=== PATIENT | female | born 1945 | race Caucasian/White ===

== ENCOUNTER 2018-01-27 06:29 | Day surgery (SDC) | payer MEDICARE, OTHER, SELFPAY ==
[2018-01-27] VITALS (7 sets, daily range): BP systolic 132–159; BP diastolic 70–93; PULSE 78–96; RESP 14–18; TEMP 36.3–37.1; O2SAT 94–97; BMI 22.9
--- NOTE | 2018-01-27 | DI.RAD.S_ITS ---
PROCEDURE: XR ABDOMEN 1V INDICATIONS: Determined gas pattern of the colon post colonoscopy attempt TECHNIQUE: One view of the abdomen acquired. COMPARISON: [facility], , ABDOMEN ACUTE SERIES, 08/10/2017, 5:36. FINDINGS: Surgical changes and devices: None. Bowel: No gaseous prominence of the cecum measuring approximately 5.7 cm. Otherwise, no bowel obstruction or dilated bowel loops. No free air seen. Soft tissues: No suspicious abdominal calcifications. Visualized solid organ contours appear normal in size. Bones: Extensive discogenic changes and mild levocurvature of the lumbar spine. Mild bilateral hip joint degeneration. IMPRESSION: No definite bowel obstruction or free air seen. Mild gaseous prominence of the cecum. If the patient's symptoms do not improve, continued surveillance with followup abdominal series radiographs could be performed. Dictated by: Terrell Israel M.D. on 01/27/2018 at 10:37 Approved by: Terrell Israel M.D. on 01/27/2018 at 10:39
[2018-01-27] MEDS: SODIUM CHLORIDE 0.9% 1,000 ML 200 ML IV (07:52)
--- NOTE | 2018-01-27 08:14 | PM.PREOP ---
Pre-operative Note Interval Note Pre-op Check: History & Physical Reviewed by Physician and Exam Performed H&P completed within 30 days and has changed as indicated here:: increased reflux sx despite acid suppression. Had minor rectal bleeding after enema. No other change. ASA Class (for procedural sedation): II
[2018-01-27] MEDS: PROMETHAZINE 25 MG/ML VIAL 12.5 MG IV (08:25)
[2018-01-27] MEDS: MIDAZOLAM 5 MG/5 ML VIAL IV (08:45)
[2018-01-27] MEDS: fentaNYL 250 MCG/5 ML INJ IV (08:45)
--- NOTE | 2018-01-27 09:14 | PM.OP.ENDO ---
Operative Date/Time/Diagnoses - Date of procedure: 01/27/18 Time of procedure: 09:14 Pre-op diagnosis: History of perforated diverticulitis. Rule out stricture at the anastomosis prior to colostomy closure Post-op diagnosis: other (Stricture at the anastomosis. Could not get beyond.) Procedure & Clinicians Study performed: Flexible sigmoidoscopy Same procedure as scheduled: No (Colonoscopy planned) Indications: Rule out anastomotic stricture Surgeon: Jett Garay Procedure Notes SCOAP/Timeout: Performed Procedure in detail: The patient was placed in left lateral decubitus position underwent IV sedation directed by the surgeon consisting of fentanyl and Versed. This was titrated to effect. Digital exam was unremarkable. The scope was inserted and advanced through the rectum into the sigmoid. Which the anastomosis with some difficulty. In fact I had to switch out to an EGD scope for the thinner caliber and flexibility. The rectum was normal in caliber as it was everything up to the anastomosis. The anastomosis however could not identify a lumen. Despite multiple attempts at repositioning the patient I could not get beyond this area. The scope was removed and the patient tolerated the procedure well. Scope withdrawal time: Not applicable Sedation minutes: 23 Specimen(s): none sent Complications: none Plan for aftercare: Will see me office to plan operation Follow up: weeks Disposition: PACU
--- NOTE | 2018-01-27 10:30 | SUR.PHASEII ---
Abdominal x-ray at bedside. Pt with stool incontinece, liquid brown/red. Dr. Garay notified. Pt cleaned up, depends placed on pt. Pt denies pain or nausea. Pt is tolerating ice chips. Pt continues to be drowsy, spouse at bedside, side rails up and call light provided.
== END 2018-01-27 11:14 | disposition home or self-care (01) ==
PROVIDERS: PCP Physician Assistant; Visit Provider Specialist
PROC: 0DJD8ZZ Inspection of Lower Intestinal Tract, Via Natural or Artificial Opening Endoscopic (ICD-10-PCS; CPT 45378; principal; 2018-01-27 07:45)
DX: Z87.19 Personal history of other diseases of the digestive system (principal); K56.699 Other intestinal obstruction unspecified as to partial versus complete obstruction; Z93.3 Colostomy status
CPT/HCPCS: 45330; 74018; 99152; 99153; J2250; J2550; J3010

== ENCOUNTER 2018-02-16 09:29 | Inpatient (IN) | payer MEDICARE, OTHER, SELFPAY ==
[2018-02-08 10:40] VITALS: BMI 24.6
[2018-02-16] VITALS (20 sets, daily range): BP systolic 113–155; BP diastolic 51–75; PULSE 75–95; RESP 12–21; TEMP 35.9–36.8; O2SAT 94–98; BMI 24.6
--- NOTE | 2018-02-16 | PATH_ITS ---
[facility] Accession Number: [id number] . 01 Material submitted: . PART A: ILEOSTOMY PART B: SIGMOID ANASTOMOSIS AND RINGS . 02 Diagnosis: A. Ileostomy, Resection: Segment of ileum with stoma. Negative for dysplasia or malignancy. . B. Sigmoid Colon and Anstomotic Rings, Resection: Segment of grossly stenotic colon and anastomotic rings. Negative for dysplasia or malignancy. [facility]/02/22/2018 . 02 Electronically signed: . Nabil Quispe MD, PhD, Pathologist NPI- [id number] . 01 Gross description: . (A) Received in formalin, labeled 1-ileostomy, is an unoriented segment of small bowel (length-6.2 cm, resection margin #1 diameter-1.3 cm; resection margin #2 diameter-2.3 cm) connecting to a stoma (diameter-3.3 cm) encircled by a rim of pimentel-white smooth shiny skin (0.4 cm thick). The bowel resection margins are received stapled and the stoma is sutured. The mucosa is pimentel with normal folds. No nodules, masses or lesions are identified. The resection margins are inked black. Section code: (A1) resection margin #1, longitudinal sectioned, telephone sales representative; (A2) resection margin #2, longitudinally sectioned, telephone sales representative; (A3) additional longitudinal section. (B) Received in formalin, labeled 2-sigmoid anastomosis plus rings, is an unoriented segment of colon (length-3.2 cm, resection margin #1 and #2 diameters-1.5 cm) with attached adipose tissue (up to 3.2 cm in depth). Also submitted are two unoriented pieces of colon (piece #1-3.1 x 1.5 x 0.3 cm; piece #2-1.5 x 1.2 x 1.0 cm). The mucosa is pimentel and unremarkable. No nodules, masses or lesions are identified. The resection margins inked black. Section code: (B1) resection margin #1, longitudinally sectioned, telephone sales representative; (B2) resection margin #2, longitudinally sectioned, telephone sales representative; (B3) colon segment, serially sectioned, telephone sales representative; (B4) separate piece #1, bisected, entirely submitted; (B5) piece #2, bisected, entirely submitted. Note: Piece #1 broke into three pieces while bisecting. ([id number]) /MRV . 02 Pathologist provided ICD-10: Z43.2, K94.10 . 02 CPT . 194158, 223609 Performed at: 01 [facility] [address] [id number] MD Aj Rashid MD Phone: [phone] Performed at: 02 [facility] [address] [place] [id number] MD Tommie Cameron MD Phone: [phone]
[2018-02-16] MEDS: LACTATED RINGERS 1,000 ML 42 ML IV (10:26)
[2018-02-16] MEDS: ERYTHROMYCIN BASE 500 MG TABLET PR (10:30)
--- NOTE | 2018-02-16 10:42 | PM.PREOP ---
Pre-operative Note Interval Note Pre-op Check: History & Physical Reviewed by Physician and Exam Performed H&P completed within 30 days and has changed as indicated here:: No changes. Will be placed in the ICU postop due to epidural catheter being placed. No Lovenox preop because of that.
[2018-02-16] MEDS: FAMOTIDINE 20 MG/50 ML PIGGYBACK 200 MG IV (10:51)
[2018-02-16 11:06] LABS: Hematocrit 41.5 % (36-46); Hemoglobin 13.8 g/dL (12.0-16.0); Mean Corpuscular HGB Conc 33.3 % (30-36); Mean Corpuscular Hemoglobin 29.8 PG (26-34); Mean Corpuscular Volume 89.4 fL (80-100); Platelet Count 328 X10^3/uL (150-400); Red Blood Cell Count 4.64 X10^6/uL (4.0-5.2); Red Cell Distribution Width 13.5 % (11.6-14.8); White Blood Cell Count 7.9 X10^3/uL (4.5-11.0)
[2018-02-16] MEDS: metroNIDAZOLE 500 MG/100 ML PIGGYBACK 100 MG IV (11:10)
[2018-02-16] MEDS: levoFLOXacin 500 MG/100 ML PIGGYBACK 100 MG IV (11:27)
[2018-02-16 11:55] LABS: Neutrophils Absolute Manual 3950 /uL (3000-5900); RBC Morphology Normal Morphology; Total Cells Counted 100
--- NOTE | 2018-02-16 14:54 | PM.OP.1 ---
Operative Date/Time/Diagnoses - Date of procedure: 02/16/18 Time of procedure: 14:54 Pre-op diagnosis: Anastomotic stricture of the sigmoid colon. Ileostomy. Post-op diagnosis: same Procedure & Clinicians Procedure: Revision of anastomosis with colo colo anastomosis and closure of ileostomy with resection of small bowel. Same procedure as scheduled: Yes Indications: Patient desiring ileostomy closure. Have his a stricture at her prior anastomosis from operation done urgently. Surgeon: Jett Garay Annealer Helper: Shantal Alan Anesthesia Type: General Operative Notes Findings: Very tight stricture in and otherwise healthy segment of colon. Vzih-bb-wvmu anastomosis created at the ileostomy closure Closure Type: primary Specimen(s): other (Colonic donuts, strictured area of the colon, ileostomy segment) Implants & Drains: None Applied: catheter Estimated Blood Loss (mL): 100 Blood products transfused: none Procedure in detail: The patient is placed supine on the operating table and went general endotracheal anesthesia. Her ileostomy was closed by over-sewing it with an 0 Prolene suture. She was prepped and draped in the usual fashion. An IO band was placed over the entire abdomen to keep the ileostomy separate from the midline incision. Incision was made through the old scar in the midline and carried down the level of the peritoneum. The peritoneal cavity was entered under direct vision. There are very few adhesions to the anterior abdominal wall. The wound was opened and adhesions divided to mobilize down to the affected anastomotic stricture. The area of problem was readily identified. There prior anastomosis was densely adherent to the bladder. This was taken off sharply. I chose a place proximal and distal on the colon to divide this segment containing the stricture. Except for the area of the stricture itself the colon was very healthy and of normal caliber pink in appearance. We divided the mesentery and CHARLES was used to fire across the colon on each side of the stricture in the segment was removed. The proximal end was opened and sized. A 28 [place] anvil was placed proximally. The other into the EUA stapling device was inserted into the rectum and gradually brought up to the level near the anastomosis. I chose to actually bring this through the anterior wall of the sigmoid rather then forced my way up to the very and. This was done without difficulty and then an anastomosis was created firing the 2 ends together. The donuts were examined and were found to be complete. The anastomosis was palpably adequate. The air was placed under tension into the colon and the anastomosis placed under water. There was no air leak. Attention was then turned to the ileostomy. An incision was made circumferentially around the ileostomy and the small bowel was from the subcu fat and fascia of the area. It was reduced into the abdomen. Choosing a point proximal and distal where I could make a anastomosis I placed small openings in the small bowel on each side and using a CHARLES stapling device created a scca-bi-fdyl anastomosis on the anti mesenteric border of the small bowel to small bowel. A CHARLES was then fired across the 2 loops of bowel and the open area created 1 long staple line and closing the defect created by the initial firing of the CHARLES to create the vijv-mm-lbkz anastomosis. The anastomosis had been examined prior to closure of the and and was felt to be adequate and no evidence of bleeding or incomplete transection. The mesenteric defect was closed with qvsvmi-vc-gnvct 3 0 Polysorb. The area was irrigated along with the pelvis. Fluid was suctioned. The fascia at the ileostomy was identified and from surrounding structures. Interrupted and mmgsez-in-eaerz 1. Surgically in was used to close the fascia. The subcu was left open. The midline fascia was closed with a running 1. Maxon and intermittent 0 Polysorb sutures. The subcu was irrigated and 3 0 Polysorb was used to partially close this. The skin in the midline was closed with a running 4 0 Polysorb subcuticular stitch and Steri-Strips. The other wound had 3 0 nylons placed to close it in a few days in a delayed primary fashion. wet gauze was inserted into the ileostomy site. Dressing was applied. Patient was sent to recovery and will ultimately go to the ICU because of an epidural catheter for pain control. Complications: none Condition: stable Disposition: PACU Plan for aftercare: ICU floor care for epidural
--- NOTE | 2018-02-16 15:07 | P.OP_ITS ---
Operative Date/Time/Diagnoses - Date of procedure: 02/16/18 Time of procedure: 14:54 Pre-op diagnosis: Anastomotic stricture of the sigmoid colon. Ileostomy. Post-op diagnosis: same Procedure & Clinicians Procedure: Revision of anastomosis with colo colo anastomosis and closure of ileostomy with resection of small bowel. Same procedure as scheduled: Yes Indications: Patient desiring ileostomy closure. Have his a stricture at her prior anastomosis from operation done urgently. Surgeon: Jett Garay Supervisor [facility] [facility]: Shantal Alan Anesthesia Type: General Operative Notes Findings: Very tight stricture in and otherwise healthy segment of colon. Side- to-side anastomosis created at the ileostomy closure Closure Type: primary Specimen(s): other (Colonic donuts, strictured area of the colon, ileostomy segment) Implants & Drains: None Applied: catheter Estimated Blood Loss (mL): 100 Blood products transfused: none Procedure in detail: The patient is placed supine on the operating table and went general endotracheal anesthesia. Her ileostomy was closed by over-sewing it with an 0 Prolene suture. She was prepped and draped in the usual fashion. An IO band was placed over the entire abdomen to keep the ileostomy separate from the midline incision. Incision was made through the old scar in the midline and carried down the level of the peritoneum. The peritoneal cavity was entered under direct vision. There are very few adhesions to the anterior abdominal wall. The wound was opened and adhesions divided to mobilize down to the affected anastomotic stricture. The area of problem was readily identified. There prior anastomosis was densely adherent to the bladder. This was taken off sharply. I chose a place proximal and distal on the colon to divide this segment containing the stricture. Except for the area of the stricture itself the colon was very healthy and of normal caliber pink in appearance. We divided the mesentery and CHARLES was used to fire across the colon on each side of the stricture in the segment was removed. The proximal end was opened and sized. A 28 [place]ralt[place] anvil was placed proximally. The other into the EUA stapling device was inserted into the rectum and gradually brought up to the level near the anastomosis. I chose to actually bring this through the anterior wall of the sigmoid rather then forced my way up to the very and. This was done without difficulty and then an anastomosis was created firing the 2 ends together. The donuts were examined and were found to be complete. The anastomosis was palpably adequate. The air was placed under tension into the colon and the anastomosis placed under water. There was no air leak. Attention was then turned to the ileostomy. An incision was made circumferentially around the ileostomy and the small bowel was from the subcu fat and fascia of the area. It was reduced into the abdomen. Choosing a point proximal and distal where I could make a anastomosis I placed small openings in the small bowel on each side and using a CHARLES stapling device created a zgmi-kp-sxfl anastomosis on the anti mesenteric border of the small bowel to small bowel. A CHARLES was then fired across the 2 loops of bowel and the open area created 1 long staple line and closing the defect created by the initial firing of the CHARLES to create the zbre-sh-xvgf anastomosis. The anastomosis had been examined prior to closure of the and and was felt to be adequate and no evidence of bleeding or incomplete transection. The mesenteric defect was closed with shhazy-cb-gqper 3 0 Polysorb. The area was irrigated along with the pelvis. Fluid was suctioned. The fascia at the ileostomy was identified and from surrounding structures. Interrupted and qvibrb-px-jihto 1. Surgically in was used to close the fascia. The subcu was left open. The midline fascia was closed with a running 1. Maxon and intermittent 0 Polysorb sutures. The subcu was irrigated and 3 0 Polysorb was used to partially close this. The skin in the midline was closed with a running 4 0 Polysorb subcuticular stitch and Steri- Strips. The other wound had 3 0 nylons placed to close it in a few days in a delayed primary fashion. wet gauze was inserted into the ileostomy site. Dressing was applied. Patient was sent to recovery and will ultimately go to the ICU because of an epidural catheter for pain control. Complications: none Condition: stable Disposition: PACU Plan for aftercare: ICU floor care for epidural
[2018-02-16] MEDS: FENT 2MCG/BUPIV 0.125% EPI 2 MCG/100 ML PLAST..BAG 6 MCG EPIDURAL (15:30)
[2018-02-16] MEDS: LACTATED RINGERS 1,000 ML 100 ML IV (16:11)
[2018-02-16] MEDS: ONDANSETRON 4 MG/2 ML INJ IV (16:11)
[2018-02-16] MEDS: LACTATED RINGERS 500 ML 1000 ML IV (17:06)
[2018-02-16] MEDS: PROMETHAZINE 12.5 MG in SODIUM CHLORIDE 0.9% 50 ML 202 ML IV (17:07)
--- NOTE | 2018-02-16 19:01 | PC.NURSE ---
1600- Pt arrived via bed from PACU. Vitals wnl. NSR 1st degree AVB on monitor. Pt denies pain at this time. Epidural infusing per MD order at 6ml. Maintinence fluid infusing per order. Pt c/o nausea medicated per MD order. Room air saturation 97%. Ordriguez to gravity. Stable at this time.
[2018-02-16] MEDS: GABAPENTIN 300 MG CAPSULE PO (21:15)
[2018-02-16] MEDS: ENOXAPARIN 40 MG/0.4 ML SYRINGE SUBCUT (21:56)
[2018-02-17] VITALS (22 sets, daily range): BP systolic 91–137; BP diastolic 46–72; PULSE 79–100; RESP 14–18; TEMP 36.4–37.9; O2SAT 92–100
[2018-02-17] MEDS: LACTATED RINGERS 1,000 ML 100 ML IV ×3 (02:39→22:04)
[2018-02-17] MEDS: FENT 2MCG/BUPIV 0.125% EPI 2 MCG/100 ML PLAST..BAG 6 MCG EPIDURAL (04:54)
[2018-02-17 05:18] LABS: Add Manual Diff / Slide Review NO; Basophils Percent Auto 0.1 % (0-2); Hematocrit 34.1 % (36-46); Hemoglobin 11.5 g/dL (12.0-16.0); Mean Corpuscular HGB Conc 33.6 % (30-36); Mean Corpuscular Volume 89.1 fL (80-100); Monocytes Percent Auto 10.2 % (3-14); Neutrophils Absolute Auto 12100 /uL (3000-5900); Neutrophils Percent Auto 80.7 % (50-75); Platelet Count 282 X10^3/uL (150-400); Red Blood Cell Count 3.83 X10^6/uL (4.0-5.2); Red Cell Distribution Width 13.6 % (11.6-14.8)
[2018-02-17 05:21] LABS: Alanine Aminotransferase 33 IU/L (9-52); Albumin 3.2 g/dL (3.5-5.0); Albumin Globulin Ratio 1.2 (1.0-2.8); Alkaline Phosphatase 40 U/L (38-126); Aspartate Aminotransferase 28 IU/L (14-36); Bilirubin Total 0.6 mg/dL (0.2-1.3); Blood Urea Nitrogen 14 mg/dL (7-17); Calcium 8.1 mg/dL (8.4-10.2); Carbon Dioxide 25 mmol/L (22-32); Chloride 105 mmol/L (98-107); Estimated Glomerular Filt Rate 54.2 mL/min (>60); Globulin 2.6 g/dL (1.7-4.1); Glucose 115 mg/dL (80-110); HEMOLYSIS < 15 (0-50); Potassium 3.9 mmol/L (3.4-5.1); Sodium 141 mmol/L (137-145); Total Protein 5.8 g/dL (6.3-8.2)
[2018-02-17] MEDS: FENT 2MCG/BUPIV 0.125% EPI 2 MCG/100 ML PLAST..BAG 8 MCG EPIDURAL ×2 (06:00→17:01)
[2018-02-17] MEDS: fentaNYL 100 MCG/2 ML INJ IV (06:00)
--- NOTE | 2018-02-17 06:25 | PC.NURSE ---
0300: pt reports feeling like my bladder is going to explode. Catheter assessed and repositioned with immediate increase in urine output flow. Pt states relief. 0500: pt reports discomfort to ABD. Still feels like bladder is full. Catheter assessed, verified position with flow of urine visualized in tubing as well as spear bag. Bladder scan for < 50 mL. Pt states the pain is more on the ABD RLQ 6/10. Dr. Pfeiffer notified of lack of pain control. Orders received to increase epidural to 8 mL/hour as well as IVP fentanyl. Pt asleep and in NAD upon reassessment. VSS, Sp02 98% RA. RR 14-16.
[2018-02-17] MEDS: PROMETHAZINE 12.5 MG in SODIUM CHLORIDE 0.9% 50 ML 202 ML IV (08:30)
--- NOTE | 2018-02-17 11:22 | PC.NURSE ---
Pt up to chair with 1PA, FWW, gait belt and yellow socks. Tolerated chair from [id number] and then requested back to bed. Reports gen weakness and required extensive assist x2 to get back to bed. Positioned for comfort and reinforced use of pillow to splint abd. Call light in easy reach. Pt able to rest comfortably in bed with eyes closed and even/unlabored respirations.
--- NOTE | 2018-02-17 15:30 | CM.SWNOTE ---
DCP pending. Patient is expecting to discharge home with no needs, but also is expecting a one week hospital stay.
[2018-02-17] MEDS: ACETAMINOPHEN 325 MG TABLET 650 MG PO (15:58)
--- NOTE | 2018-02-17 16:36 | P.PN_ITS ---
Subjective Date Patient Seen: 02/17/18 Time Patient Seen: 09:34 Interval history: Patient feeling pretty well. Pain is well controlled. Epidural remains in. She is getting DVT prophylaxis. She was out of bed and walking a little bit. She took a great deal of assistance to get her back in bed probably related to the epidural. She is taking very little p.o. which is probably fine. Exam Vital Signs (past 8 hours): Vital Signs - 8 hr 3 02/17/18 12:19 02/17/18 13:00 02/17/18 15:12 Temperature 99.6 F 98.1 F Pulse Rate 86 82 Respiratory Rate 18 17 Blood Pressure 112/51 L 116/61 Pulse Oximetry 95 98 96 Pulse Oximetry 96 Oxygen Delivery Method Room Air Oxygen Flow Rate 0 Narrative Exam Narrative: Operative no apparent distress. Lungs are clear with good effort. Heart regular rate and rhythm without murmur gallop. Abdomen is little distended but soft. Incisions are intact. No cellulitis. Her open wound is clean and healthy. Objective Labs Result Diagrams: 02/17/18 04:44 02/17/18 04:44 Labs: Laboratory Results - last 24 hr 02/17/18 02/17/18 04:44 04:44 WBC 15.0 H D RBC 3.83 L Hgb 11.5 L Hct 34.1 L MCV 89.1 MCH 30.0 MCHC 33.6 RDW 13.6 Plt Count 282 Neut % (Auto) 80.7 H Lymph % (Auto) 9.0 L [place] % (Auto) 10.2 Eos % (Auto) 0.0 L Baso % (Auto) 0.1 Neut # (Auto) 86965 H Sodium 141 Potassium 3.9 Chloride 105 Carbon Dioxide 25 BUN 14 Creatinine 1.00 Estimated GFR 54.2 L BUN/Creatinine Ratio 14.0 Glucose 115 H Calcium 8.1 L Total Bilirubin 0.6 AST 28 ALT 33 Alkaline Phosphatase 40 Total Protein 5.8 L Albumin 3.2 L Globulin 2.6 Albumin/Globulin Ratio 1.2 Assessment & Plan Post-op Postoperative Procedures Operation Date: 02/16/18 10:15 Actual Procedures Side Surgeon p Revision of Colon Anastomosis/Ileostomy Closure Jett Garay MD Patient is doing well postop day 1. Will continue the epidural as long as possible. Cautious p.o.. I am in no long to give her food given that she has 2 anastomoses to recover from. She seems to be tolerating things pretty well from an infectious point of view. She is breathing well. Will continue to monitor for problems. Postoperative day: 1 Postoperative status: doing well Time Spent With Patient less than 15 minutes Quality VTE Deep Vein Thrombosis/Pulmonary Embolism Present on Admission: No
--- NOTE | 2018-02-17 20:49 | PC.NURSE ---
1800-Pt is taking po fluids ok but no other nutrition. Pt encouraged to take more po. Pt having gas pains that are making her feel like she cannot eat. No flatus reported. Will Monitor
[2018-02-17] MEDS: ENOXAPARIN 40 MG/0.4 ML SYRINGE SUBCUT (21:26)
[2018-02-17] MEDS: GABAPENTIN 300 MG CAPSULE PO (21:26)
[2018-02-18] VITALS (16 sets, daily range): BP systolic 108–144; BP diastolic 51–81; PULSE 84–95; RESP 14–19; TEMP 36–38; O2SAT 91–98
[2018-02-18] MEDS: FENT 2MCG/BUPIV 0.125% EPI 2 MCG/100 ML PLAST..BAG 8 MCG EPIDURAL (05:11)
[2018-02-18] MEDS: ACETAMINOPHEN 325 MG TABLET 650 MG PO ×3 (05:15→20:46)
[2018-02-18 05:19] LABS: Add Manual Diff / Slide Review NO; Basophils Percent Auto 0.4 % (0-2); Eosinophils Percent Auto 0.6 % (2-4); Hematocrit 28.9 % (36-46); Hemoglobin 9.7 g/dL (12.0-16.0); Lymphocytes Percent Auto 13.7 % (25-40); Mean Corpuscular HGB Conc 33.6 % (30-36); Mean Corpuscular Hemoglobin 30.3 PG (26-34); Mean Corpuscular Volume 90.2 fL (80-100); Neutrophils Absolute Auto 8400 /uL (3000-5900); Neutrophils Percent Auto 74.3 % (50-75); Platelet Count 238 X10^3/uL (150-400); Red Blood Cell Count 3.21 X10^6/uL (4.0-5.2); Red Cell Distribution Width 13.5 % (11.6-14.8); White Blood Cell Count 11.3 X10^3/uL (4.5-11.0)
[2018-02-18 05:25] LABS: Blood Urea Nitrogen 13 mg/dL (7-17); Calcium 7.8 mg/dL (8.4-10.2); Carbon Dioxide 28 mmol/L (22-32); Chloride 106 mmol/L (98-107); Estimated Glomerular Filt Rate 54.2 mL/min (>60); Glucose 107 mg/dL (80-110); HEMOLYSIS < 15 (0-50); Potassium 3.1 mmol/L (3.4-5.1); Sodium 141 mmol/L (137-145)
[2018-02-18] MEDS: DEXTROSE 5%-0.45NS W/KCL 20MEQ 1,000 ML 100 MEQ IV ×2 (08:04→20:14)
[2018-02-18] MEDS: GABAPENTIN 300 MG CAPSULE PO ×2 (08:07→20:46)
[2018-02-18] MEDS: POTASSIUM CHLORIDE 20 MEQ in SODIUM CHLORIDE 0.9% 250 ML 130 ML IV (08:17)
--- NOTE | 2018-02-18 12:55 | PM.PN.1 ---
Subjective Date Patient Seen: 02/18/18 Time Patient Seen: 12:55 Interval history: Antoinette is postop day 2 after laparotomy with colo proctostomy an ostomy reversal. She reports that her epidural is working reasonably well for her pain. She says she still feels some discomfort but it does not keep her from resting. She also reports that she feels something moving through there today. She has eaten some clear liquids but she feels a bit full and isn't really hungry. Perhaps she has passed a tiny bit of flatus she is not sure. Has had a little burp here and there. Exam Vital Signs (past 8 hours): Vital Signs - 8 hr 02/18/18 05:15 02/18/18 06:05 02/18/18 07:50 Temperature 99.6 F 98.4 F Pulse Rate 86 90 Respiratory Rate 15 14 Blood Pressure 123/60 H 117/53 L Pulse Oximetry 93 96 02/18/18 10:35 02/18/18 12:11 Temperature 98.6 F Pulse Rate 84 Respiratory Rate 19 Blood Pressure 135/78 H Pulse Oximetry 91 95 Pulse Oximetry 95 Oxygen Delivery Method Room Air Oxygen Flow Rate 0 Narrative Exam Narrative: Very pleasant lady. She appears comfortable and in no distress Lungs: Clear bilaterally with somewhat decreased air movement at the bases. No wheezing Heart: Regular rate and rhythm Abdomen: Soft, distended, hypo active bowel sounds. Right lower quadrant dressing is a bit wet. No purulent drainage. Extremities: Hope no edema Objective Labs Result Diagrams: 02/18/18 05:06 02/18/18 05:06 Labs: Laboratory Results - last 24 hr 02/18/18 02/18/18 05:06 05:06 WBC 11.3 H RBC 3.21 L Hgb 9.7 L Hct 28.9 L MCV 90.2 MCH 30.3 MCHC 33.6 RDW 13.5 Plt Count 238 Neut % (Auto) 74.3 Lymph % (Auto) 13.7 L [place] % (Auto) 11.0 Eos % (Auto) 0.6 L Baso % (Auto) 0.4 Neut # (Auto) 8400 H Sodium 141 Potassium 3.1 L Chloride 106 Carbon Dioxide 28 BUN 13 Creatinine 1.00 Estimated GFR 54.2 L BUN/Creatinine Ratio 13.0 Glucose 107 Calcium 7.8 L Assessment & Plan Plan: Assessment/Plan Narrative: 1. Excellent progress after laparotomy for revision of coloproctostomy an ostomy reversal. 2. We have epidural in place at least 1 more day 3. Change right lower quadrant dressing to keep it a little steam drier tender 4. Low-grade temp this morning though her white count continues to trend down. Will just employ a watchful waiting 5. Abdominal distention on clear liquids. Antoinette is not hungry or thirsty and so I think we will revert back to just diffuse sparing ice chips for today. This will give her bowels a little time to wake up and maybe prevent us from needing to place an NG tube. 6. Will add a little low-dose Reglan and see if we can help move things along. Quality VTE Deep Vein Thrombosis/Pulmonary Embolism Present on Admission: No
--- NOTE | 2018-02-18 12:58 | P.PN_ITS ---
Subjective Date Patient Seen: 02/18/18 Time Patient Seen: 12:55 Interval history: Antoinette is postop day 2 after laparotomy with colo proctostomy an ostomy reversal. She reports that her epidural is working reasonably well for her pain. She says she still feels some discomfort but it does not keep her from resting. She also reports that she feels something moving through there today. She has eaten some clear liquids but she feels a bit full and isn't really hungry. Perhaps she has passed a tiny bit of flatus she is not sure. Has had a little burp here and there. Exam Vital Signs (past 8 hours): Vital Signs - 8 hr 3 02/18/18 05:15 02/18/18 06:05 02/18/18 07:50 Temperature 99.6 F 98.4 F Pulse Rate 86 90 Respiratory Rate 15 14 Blood Pressure 123/60 H 117/53 L Pulse Oximetry 93 96 3 02/18/18 10:35 02/18/18 12:11 Temperature 98.6 F Pulse Rate 84 Respiratory Rate 19 Blood Pressure 135/78 H Pulse Oximetry 91 95 Pulse Oximetry 95 Oxygen Delivery Method Room Air Oxygen Flow Rate 0 Narrative Exam Narrative: Very pleasant lady. She appears comfortable and in no distress Lungs: Clear bilaterally with somewhat decreased air movement at the bases. No wheezing Heart: Regular rate and rhythm Abdomen: Soft, distended, hypo active bowel sounds. Right lower quadrant dressing is a bit wet. No purulent drainage. Extremities: Hope no edema Objective Labs Result Diagrams: 02/18/18 05:06 02/18/18 05:06 Labs: Laboratory Results - last 24 hr 02/18/18 02/18/18 05:06 05:06 WBC 11.3 H RBC 3.21 L Hgb 9.7 L Hct 28.9 L MCV 90.2 MCH 30.3 MCHC 33.6 RDW 13.5 Plt Count 238 Neut % (Auto) 74.3 Lymph % (Auto) 13.7 L [place] % (Auto) 11.0 Eos % (Auto) 0.6 L Baso % (Auto) 0.4 Neut # (Auto) 8400 H Sodium 141 Potassium 3.1 L Chloride 106 Carbon Dioxide 28 BUN 13 Creatinine 1.00 Estimated GFR 54.2 L BUN/Creatinine Ratio 13.0 Glucose 107 Calcium 7.8 L Assessment & Plan Plan: Assessment/Plan Narrative: 1. Excellent progress after laparotomy for revision of coloproctostomy an ostomy reversal. 2. We have epidural in place at least 1 more day 3. Change right lower quadrant dressing to keep it a little leather drier 4. Low-grade temp this morning though her white count continues to trend down. Will just employ a watchful waiting 5. Abdominal distention on clear liquids. Antoinette is not hungry or thirsty and so I think we will revert back to just diffuse sparing ice chips for today. This will give her bowels a little time to wake up and maybe prevent us from needing to place an NG tube. 6. Will add a little low-dose Reglan and see if we can help move things along. Quality VTE Deep Vein Thrombosis/Pulmonary Embolism Present on Admission: No
[2018-02-18] MEDS: SODIUM CHLORIDE 0.9% EPIDURAL (18:15)
[2018-02-18] MEDS: FENTANYL EPIDURAL (18:15)
[2018-02-18] MEDS: BUPIVACAINE 0.5% EPIDURAL (18:15)
[2018-02-18] MEDS: METOCLOPRAMIDE 10 MG/2 ML INJ 5 MG IV ×2 (18:15→23:57)
[2018-02-18] MEDS: ENOXAPARIN 40 MG/0.4 ML SYRINGE SUBCUT (20:45)
--- NOTE | 2018-02-18 21:59 | PC.NURSE ---
Patient states good pain control with epidural, except with major position change. Also states she feels sensation of needing to pass stool- up on bedside commode once, and bedpan twice with no stools. active bowel tones, abdomen softly poochy. no nausea. States her legs numb and difficult to walk, maintain balance when transferring from bed to bedside commode- explained secondary to epidural catheter for pain managemnet.
[2018-02-19] VITALS (13 sets, daily range): BP systolic 131–167; BP diastolic 62–82; PULSE 84–101; RESP 15–21; TEMP 36.4–37.1; O2SAT 91–96
[2018-02-19 05:32] LABS: Add Manual Diff / Slide Review NO; Basophils Percent Auto 0.3 % (0-2); Eosinophils Percent Auto 1.7 % (2-4); Hematocrit 28.7 % (36-46); Hemoglobin 9.7 g/dL (12.0-16.0); Mean Corpuscular HGB Conc 33.8 % (30-36); Mean Corpuscular Hemoglobin 30.5 PG (26-34); Mean Corpuscular Volume 90.3 fL (80-100); Monocytes Percent Auto 10.4 % (3-14); Neutrophils Absolute Auto 8200 /uL (3000-5900); Neutrophils Percent Auto 71.6 % (50-75); Platelet Count 240 X10^3/uL (150-400); Red Blood Cell Count 3.18 X10^6/uL (4.0-5.2); Red Cell Distribution Width 13.5 % (11.6-14.8); White Blood Cell Count 11.4 X10^3/uL (4.5-11.0)
[2018-02-19 05:37] LABS: BUN Creatinine Ratio 7.8 (6-22); Blood Urea Nitrogen 7 mg/dL (7-17); Calcium 7.6 mg/dL (8.4-10.2); Carbon Dioxide 27 mmol/L (22-32); Chloride 107 mmol/L (98-107); Estimated Glomerular Filt Rate > 60.0 mL/min (>60); Glucose 113 mg/dL (80-110); HEMOLYSIS < 15 (0-50); Potassium 3.1 mmol/L (3.4-5.1); Sodium 142 mmol/L (137-145)
[2018-02-19] MEDS: METOCLOPRAMIDE 10 MG/2 ML INJ 5 MG IV ×3 (06:10→18:30)
[2018-02-19] MEDS: DEXTROSE 5%-0.45NS W/KCL 20MEQ 1,000 ML 100 MEQ IV ×2 (06:10→15:42)
--- NOTE | 2018-02-19 06:51 | PC.NURSE ---
Patient has been awake most of the night, watching TV, calm and more interactive, expresses needs and uses call light, but still does not answer all questions. Denies pain, 650mg PO Tylenol given for fever 101.0, Temp down to 98.9 this am. IV abx given as scheduled, tolerating NS @ 150ml/hr without respiratory distress, does have occas non-productive cough, breath sounds diminished, SpO2 >94% on RA. Edema to LLE has decreased a bit, and PPP.
[2018-02-19] MEDS: ACETAMINOPHEN 325 MG TABLET 650 MG PO ×2 (10:09→14:37)
[2018-02-19] MEDS: GABAPENTIN 300 MG CAPSULE PO ×2 (10:09→21:46)
--- NOTE | 2018-02-19 13:54 | PC.NURSE ---
pt doing well- only tylenol q 4h and scheduled bid gabapentin ffor pain controlled- has declined to have dilaudid assistant professor of psychology set up as she hopes to use no narcotics if at all possible- epidural out, tele off, and spear removed this am- pt ambulated entire length of unit x 2
--- NOTE | 2018-02-19 15:05 | P.PN_ITS ---
Subjective Date Patient Seen: 02/19/18 Time Patient Seen: 15:03 Interval history: Antoinette is feeling and looking much better today. Her epidural is out and her Rodriguez is out. She is taking only Tylenol and gabapentin for pain control. She has walked with assistance and seems to be pretty steady on her feet. She tells me it felt really good to get up out of bed and stretch her legs. She has had several small bowel movements and passed some flatus since yesterday. She has been on only ice chips since I saw her yesterday morning. She admits she is very hungry and would like a scrambled leg on a piece of white toast with butter. Exam Vital Signs (past 8 hours): Vital Signs - 8 hr 3 02/19/18 08:00 02/19/18 10:10 02/19/18 10:37 Temperature 98.5 F Pulse Rate 84 101 H Respiratory Rate 15 16 Blood Pressure 141/63 H 167/82 H Pulse Oximetry 94 95 3 02/19/18 13:51 Temperature Pulse Rate Respiratory Rate Blood Pressure Pulse Oximetry 96 Pulse Oximetry 96 Oxygen Delivery Method Room Air Oxygen Flow Rate 0 Narrative Exam Narrative: Lungs: Clear bilaterally. Some noisy breath sounds but it improves with the cough Heart: Regular rate and rhythm Abdomen: Much softer and less distended, active bowel sounds. Right lower quadrant wound is now clean and dry. The beginnings of granulation can be appreciated. Midline wound is well approximated and without any erythema. Extremities: Warm and well perfused Objective Labs Result Diagrams: 02/19/18 04:51 02/19/18 04:51 Labs: Laboratory Results - last 24 hr 02/19/18 02/19/18 04:51 04:51 WBC 11.4 H RBC 3.18 L Hgb 9.7 L Hct 28.7 L MCV 90.3 MCH 30.5 MCHC 33.8 RDW 13.5 Plt Count 240 Neut % (Auto) 71.6 Lymph % (Auto) 16.0 L [place] % (Auto) 10.4 Eos % (Auto) 1.7 L Baso % (Auto) 0.3 Neut # (Auto) 8200 H Sodium 142 Potassium 3.1 L Chloride 107 Carbon Dioxide 27 BUN 7 Creatinine 0.90 Estimated GFR > 60.0 BUN/Creatinine Ratio 7.8 Glucose 113 H Calcium 7.6 L Assessment & Plan Plan: Assessment/Plan Narrative: 1. White count essentially stable 2. Afebrile now for more than 24 hr. No temperature elevation at all since yesterday morning about 5:00 a.m.. 3. Distension is improving and bowel function is returning. 4. Will start clear liquid diet again this afternoon. If she does well overnight and has no nausea and continues to have bowel function, she can have a scrambled egg on white toast with butter in the morning. Quality VTE Deep Vein Thrombosis/Pulmonary Embolism Present on Admission: No
--- NOTE | 2018-02-19 16:27 | CM.DPC ---
DCP: continued: checked in with elmo PHILLIPS. She reports pt now with epidural out, on floor care, ambulating in halls today and diet is advancing. She is doing well toward her plan for d/c home when stable for same.
--- NOTE | 2018-02-19 19:19 | PC.NURSE ---
Radha note Pt up to [facility] for liquid brown-rust colored stool, smells like GI Bleed. Bloody stool is not new. Right abd former ostomy site drsg has dry serosanguinous fluid on it. Midline incision with sutures is covered by intact steristrips. Pt denies nausea. Bowel tones hypoactive with soft distended abd.
[2018-02-19] MEDS: ENOXAPARIN 40 MG/0.4 ML SYRINGE SUBCUT (21:46)
[2018-02-20] VITALS (8 sets, daily range): BP systolic 143–165; BP diastolic 60–93; PULSE 73–99; RESP 16–18; TEMP 36.2–37.1; O2SAT 91–96; BMI 24.6
[2018-02-20] MEDS: METOCLOPRAMIDE 10 MG/2 ML INJ 5 MG IV ×3 (00:24→19:10)
[2018-02-20] MEDS: ACETAMINOPHEN 325 MG TABLET 650 MG PO ×5 (00:35→21:51)
[2018-02-20] MEDS: DEXTROSE 5%-0.45NS W/KCL 20MEQ 1,000 ML 100 MEQ IV (02:03)
[2018-02-20] MEDS: HYDROMORPHONE PCA 6 MG/30 ML PCA.VIAL IV (05:44)
[2018-02-20] MEDS: GABAPENTIN 300 MG CAPSULE PO ×2 (07:35→21:51)
--- NOTE | 2018-02-20 16:50 | P.PN_ITS ---
Subjective Date Patient Seen: 02/20/18 Time Patient Seen: 09:47 Interval history: Antoinette is looking great today. She is having bowel movements and has stopped taking all of her medicine with the exception of Tylenol. It controls her pretty well and she prefers it to the feeling of narcotics. She would like to have a little more often. She has been getting out of bed a little bit but needs to move around a little bit more before discharge. Still getting dressing changes twice a day. She reports these are still pretty uncomfortable. Exam Vital Signs (past 8 hours): Vital Signs - 8 hr 3 02/20/18 10:45 02/20/18 11:34 Temperature 98.8 F Pulse Rate 82 Respiratory Rate 16 Blood Pressure 165/93 H Pulse Oximetry 96 95 Pulse Oximetry 95 Oxygen Delivery Method Room Air Oxygen Flow Rate 0 Narrative Exam Narrative: Antoinette is looking great today. Her cheeks are pink and she is in a great mood. Lungs: Clear bilaterally Heart: Regular rate and rhythm Abdomen: Soft, minimal tenderness to palpation, active bowel sounds. Nondistended. Right lower quadrant ostomy closure site is granulating. It is clean without evidence of infection. Midline incision is well approximated and without evidence of infection. Extremities: Warm and well perfused Objective Labs Result Diagrams: 02/19/18 04:51 02/19/18 04:51 Assessment & Plan Plan: Assessment/Plan Narrative: Excellent recovery and progress after ostomy reversal and revision of coloproctostomy. We will continue dressing changes 1 more day. Antoinette is going to get everything ready at home for her to be discharged hopefully tomorrow. We will increase her Tylenol frequency to 650 mg every 4 hr. She still has narcotics for breakthrough pain if she desires. Quality VTE Deep Vein Thrombosis/Pulmonary Embolism Present on Admission: No
[2018-02-20] MEDS: ENOXAPARIN 40 MG/0.4 ML SYRINGE SUBCUT (21:50)
[2018-02-20] MEDS: SODIUM CHLORIDE 0.9% FLUSH 10 ML IV (21:52)
--- NOTE | 2018-02-20 22:30 | PC.NURSE ---
Patient up ambulating to bathroom using walker. States good pain control with tylenol. abdominal incision dressing d/i. anticipate purse string sutures from stoma site to be tightenend tomorrow prior to discharge.
[2018-02-21] VITALS (7 sets, daily range): BP systolic 133–148; BP diastolic 65–75; PULSE 83–95; RESP 16–20; TEMP 36.6–37; O2SAT 92–95
[2018-02-21] MEDS: METOCLOPRAMIDE 10 MG/2 ML INJ 5 MG IV ×2 (00:28→06:52)
[2018-02-21] MEDS: ACETAMINOPHEN 325 MG TABLET 650 MG PO ×6 (03:08→23:05)
[2018-02-21] MEDS: GABAPENTIN 300 MG CAPSULE PO ×2 (09:04→21:14)
[2018-02-21] MEDS: SODIUM CHLORIDE 0.9% FLUSH 10 ML IV (09:08)
--- NOTE | 2018-02-21 14:37 | PC.NURSE ---
pt with ostomy site sutured closed by surgeon- covered with dry gauze and he willreturn to assess later this pm with strong potential of pt being d/c'd to home
--- NOTE | 2018-02-21 16:56 | PC.NURSE ---
Patient's in to visit- dressing over stoma changed. Anticipate Dr. Garay will be returning this afternoon for further evaluation of wound/ post op status- possible discharge today. Patient states pain controlled with tylenol- except with changes in positioning and coughing. Reviewed splinting of abdomen wth pillow.
--- NOTE | 2018-02-21 19:11 | P.PN_ITS ---
Subjective Date Patient Seen: 02/21/18 Time Patient Seen: 19:04 Interval history: Patient seen earlier today and again this evening. She does not have much of an appetite. She was trying to eat beef Stroganoff with noodles and she said there were 2 dry and she was having trouble swallowing them. She has no problem with the Ensure. She is having some diarrhea. Exam Vital Signs (past 8 hours): Vital Signs - 8 hr 3 02/21/18 11:11 02/21/18 16:12 Temperature 97.9 F Pulse Rate 83 Respiratory Rate 18 Blood Pressure 148/65 H Pulse Oximetry 95 94 Pulse Oximetry 94 Oxygen Delivery Method Room Air Oxygen Flow Rate 0 Narrative Exam Narrative: Little confused at times. Lungs are clear with good effort. Heart regular rate and rhythm without murmur gallop. Abdomen lymph distended but soft. Midline is intact. Ostomy was clean with a little redness right at the edge. Nursing said that it has been there for a while. It is not expanding. Objective Labs Result Diagrams: 02/19/18 04:51 02/19/18 04:51 Assessment & Plan Post-op (1) Status post closure of ileostomy: Problem details: She is doing all right but seems a little hesitant to go home this evening. Not sure she is quite up to it any how. I would like to see her tolerate p.o. just a little better. She is on no narcotics. I will get some x-rays in the morning to make sure that there is no marked distention of any part of her intestine. Will check labs in the morning to see if there has been any change. I did tie her stitches this morning at her prior ileostomy site after irrigating out the wound cleaning the edges with Betadine, injecting a total of 6 cc of local around it. Tying it brought it together nicely. Current Visit: Yes Status: Acute Postoperative Procedures Operation Date: 02/16/18 10:15 Actual Procedures Side Surgeon p Revision of Colon Anastomosis/Ileostomy Closure Jett Garay MD Time Spent With Patient 25 - 35 minutes Quality VTE Deep Vein Thrombosis/Pulmonary Embolism Present on Admission: No
[2018-02-21] MEDS: ENOXAPARIN 40 MG/0.4 ML SYRINGE SUBCUT (21:13)
--- NOTE | 2018-02-21 22:11 | PC.NURSE ---
Patient seen by Dr. Garay @ 1900- at bedside- plan for abdominal xrays in am to follow up. Abdomen remains distended- denies nausea, bowel tones present and passing small amounts of liquid stool flecks. Patient stated she had difficulty eating dinner tonight- the stroganoff was too dry. given discharge instructions for ileostomy takedown. Patient ambulating to bathroom with walker.
[2018-02-22] VITALS (7 sets, daily range): BP systolic 137–150; BP diastolic 67–71; PULSE 86–100; RESP 16–20; TEMP 36.2–37.1; O2SAT 92–95
[2018-02-22] MEDS: ACETAMINOPHEN 325 MG TABLET 650 MG PO ×3 (03:09→21:23)
[2018-02-22 05:43] LABS: Clostridium Difficile Tox PCR Negative for C. diff
[2018-02-22 05:47] LABS: Add Manual Diff / Slide Review NO; Basophils Percent Auto 0.4 % (0-2); Hemoglobin 9.4 g/dL (12.0-16.0); Lymphocytes Percent Auto 13.5 % (25-40); Mean Corpuscular HGB Conc 34.8 % (30-36); Mean Corpuscular Hemoglobin 30.6 PG (26-34); Mean Corpuscular Volume 87.9 fL (80-100); Neutrophils Absolute Auto 8600 /uL (3000-5900); Neutrophils Percent Auto 72.1 % (50-75); Platelet Count 331 X10^3/uL (150-400); Red Blood Cell Count 3.07 X10^6/uL (4.0-5.2); Red Cell Distribution Width 13.8 % (11.6-14.8); White Blood Cell Count 11.9 X10^3/uL (4.5-11.0)
[2018-02-22 05:48] LABS: HEMOLYSIS < 15 (0-50)
[2018-02-22 05:49] LABS: BUN Creatinine Ratio 16.3 (6-22); Blood Urea Nitrogen 13 mg/dL (7-17); Carbon Dioxide 27 mmol/L (22-32); Chloride 102 mmol/L (98-107); Estimated Glomerular Filt Rate > 60.0 mL/min (>60); Glucose 101 mg/dL (80-110); Sodium 141 mmol/L (137-145)
[2018-02-22 06:16] LABS: Potassium 2.3 mmol/L (3.4-5.1)
[2018-02-22] MEDS: POTASSIUM CHLORIDE 20 MEQ TAB 40 MEQ PO (06:52)
--- NOTE | 2018-02-22 07:00 | DI.RAD.S_ITS ---
PROCEDURE: XR ACUTE ABDOMEN SERIES INDICATIONS: 72-year-old female status post colostomy closure, with abdominal distention. TECHNIQUE: One view chest and two views of the abdomen were acquired. COMPARISON: [facility], , XR ABDOMEN 1V, 01/27/2018, 9:44. [facility], , ABDOMEN ACUTE SERIES, 08/10/2017, 5:36. [facility], , ABDOMEN ACUTE SERIES, 05/09/2015, 16:02. FINDINGS: Surgical changes and devices: None. Chest: Lungs are clear. Heart size is normal. No pleural effusions. No pneumoperitoneum. Abdomen: There is moderate dilation of proximal and mid colon loops, with normalization of caliber in the descending colon. No pneumatosis. No dilated small bowel loops. No suspicious calcifications. Visualized solid organ contours appear normal. Bones: No suspicious bony lesions. There is multilevel lumbar spine disc degeneration. IMPRESSION: Findings consistent with distal colon obstruction, versus evolving postoperative ileus. Dictated by: Timothy Magallanes M.D. on 02/22/2018 at 7:37 Approved by: Timothy Magallanes M.D. on 02/22/2018 at 7:40
[2018-02-22] MEDS: GABAPENTIN 300 MG CAPSULE PO ×2 (08:26→21:23)
[2018-02-22] MEDS: POTASSIUM CHLORIDE 60 MEQ in SODIUM CHLORIDE 0.9% 500 ML 88.333 ML IV (08:43)
[2018-02-22 08:44] LABS: Magnesium 2.1 mg/dL (1.6-2.3)
[2018-02-22] MEDS: DEXTROSE 5%-0.45% NS 1,000 ML 84 ML IV ×2 (08:44→22:25)
[2018-02-22] MEDS: BISACODYL 10 MG SUPP PR (08:45)
[2018-02-22 16:17] LABS: HEMOLYSIS < 15 (0-50); Potassium 3.1 mmol/L (3.4-5.1)
--- NOTE | 2018-02-22 17:33 | P.PN_ITS ---
Subjective Date Patient Seen: 02/22/18 Time Patient Seen: 17:29 Interval history: Patient is seen this morning and again this evening at this time. Having pain where I sewed her ostomy wound together. Having a lot of liquid stools. Not passing much flatus. Exam Vital Signs (past 8 hours): Vital Signs - 8 hr 3 02/22/18 13:20 02/22/18 16:06 Temperature 98.8 F Pulse Rate 86 Respiratory Rate 19 Blood Pressure 150/71 H Pulse Oximetry 94 93 Pulse Oximetry 93 Oxygen Delivery Method Room Air Oxygen Flow Rate 0 Narrative Exam Narrative: Operative no apparent distress. Patient has crackles in the bases this evening. Otherwise good air movement. Heart regular rate and rhythm without murmur gallop. Abdomen is distended but less so than earlier this morning.(nursing states she has passed a lot of flatus) Objective Imaging Abdominal x-ray: My impression: Distended transverse colon with gas to the left pelvic brim. The left colon is not distended. Labs Result Diagrams: 02/22/18 04:53 02/22/18 15:00 Labs: Laboratory Results - last 24 hr 02/22/18 02/22/18 02/22/18 03:22 04:53 04:53 WBC 11.9 H RBC 3.07 L Hgb 9.4 L Hct 27.0 L MCV 87.9 MCH 30.6 MCHC 34.8 RDW 13.8 Plt Count 331 Neut % (Auto) 72.1 Lymph % (Auto) 13.5 L [place] % (Auto) 11.0 Eos % (Auto) 3.0 Baso % (Auto) 0.4 Neut # (Auto) 8600 H Sodium 141 Potassium 2.3 L* Chloride 102 Carbon Dioxide 27 BUN 13 Creatinine 0.80 Estimated GFR > 60.0 BUN/Creatinine Ratio 16.3 Glucose 101 Calcium 8.0 L Magnesium C. difficile Tox (PCR) Negative for c. diff 02/22/18 02/22/18 15:00 Unknown WBC RBC Hgb Hct MCV MCH MCHC RDW Plt Count Neut % (Auto) Lymph % (Auto) [place] % (Auto) Eos % (Auto) Baso % (Auto) Neut # (Auto) Sodium Potassium 3.1 L Chloride Carbon Dioxide BUN Creatinine Estimated GFR BUN/Creatinine Ratio Glucose Calcium Magnesium 2.1 C. difficile Tox (PCR) Assessment & Plan Post-op Postoperative Procedures Operation Date: 02/16/18 10:15 Actual Procedures Side Surgeon p Revision of Colon Anastomosis/Ileostomy Closure Jett Garay MD Patient's potassium was low early this morning. At 2.3 I gave her 60 mEq IV and restarted her IV. Eloisa is now 3.1 post infusion. However she sounds a little wet and her lungs cell give her it is low dose of Lasix but repeat her potassium at 40 mEq. We will recheck her labs in the morning. I think the potassium has improved her colonic function. I will resume her diet this evening. Slower IV fluids. Re-evaluate in the morning. Closure site looking pretty much as expected. We will keep an eye on it however because the patient is having some discomfort there. Time Spent With Patient 25 - 35 minutes Quality VTE Deep Vein Thrombosis/Pulmonary Embolism Present on Admission: No
[2018-02-22] MEDS: POTASSIUM CHLORIDE 40 MEQ in SODIUM CHLORIDE 0.9% 500 ML 130 ML IV (18:43)
[2018-02-22] MEDS: FUROSEMIDE 20 MG/2 ML VIAL IV (18:43)
[2018-02-22] MEDS: ENOXAPARIN 40 MG/0.4 ML SYRINGE SUBCUT (21:23)
--- NOTE | 2018-02-22 21:34 | PC.NURSE ---
2100- Pt has had good response to the IV lasix. Posterior Lung sounds are improved but crackles are still present. Pt is otherwise stable at this time.l
[2018-02-23] VITALS (9 sets, daily range): BP systolic 141–155; BP diastolic 57–94; PULSE 84–93; RESP 16–20; TEMP 36.3–37.1; O2SAT 92–97
[2018-02-23] MEDS: ACETAMINOPHEN 325 MG TABLET 650 MG PO ×3 (02:23→20:11)
[2018-02-23 05:53] LABS: Add Manual Diff / Slide Review NO; Basophils Percent Auto 0.6 % (0-2); Eosinophils Percent Auto 4.5 % (2-4); Hematocrit 25.2 % (36-46); Hemoglobin 8.8 g/dL (12.0-16.0); Lymphocytes Percent Auto 15.2 % (25-40); Mean Corpuscular HGB Conc 34.7 % (30-36); Mean Corpuscular Hemoglobin 30.4 PG (26-34); Mean Corpuscular Volume 87.7 fL (80-100); Neutrophils Absolute Auto 6300 /uL (3000-5900); Neutrophils Percent Auto 65.7 % (50-75); Platelet Count 328 X10^3/uL (150-400); Red Blood Cell Count 2.88 X10^6/uL (4.0-5.2); Red Cell Distribution Width 13.8 % (11.6-14.8); White Blood Cell Count 9.5 X10^3/uL (4.5-11.0)
[2018-02-23 06:01] LABS: BUN Creatinine Ratio 12.9 (6-22); Blood Urea Nitrogen 9 mg/dL (7-17); Calcium 7.5 mg/dL (8.4-10.2); Carbon Dioxide 28 mmol/L (22-32); Chloride 104 mmol/L (98-107); Estimated Glomerular Filt Rate > 60.0 mL/min (>60); Glucose 103 mg/dL (80-110); HEMOLYSIS < 15 (0-50); Sodium 141 mmol/L (137-145)
[2018-02-23 06:32] LABS: Potassium 2.5 mmol/L (3.4-5.1)
[2018-02-23] MEDS: POTASSIUM CHLORIDE 20 MEQ TAB PO (08:05)
[2018-02-23] MEDS: POTASSIUM CHLORIDE 40 MEQ in SODIUM CHLORIDE 0.9% 500 ML 130 ML IV (08:05)
[2018-02-23] MEDS: GABAPENTIN 300 MG CAPSULE PO ×2 (08:06→20:11)
[2018-02-23] MEDS: CLINDAMYCIN 900 MG/50 ML PIGGYBACK 50 MG IV ×2 (14:04→21:31)
[2018-02-23 14:12] LABS: HEMOLYSIS < 15 (0-50)
[2018-02-23] MEDS: levoFLOXacin 500 MG/100 ML PIGGYBACK 100 MG IV (15:19)
--- NOTE | 2018-02-23 15:21 | CM.DPC ---
DCP Cont: Met w/pt and spouse Jorge L this morning. Both are very pleasant and awaiting next steps from the doctor. Pt/spouse appreciate the visit although are unsure what pt will need upon DC. Pt explains her has been doing a very good job at managing pt's needs and ostomy care at home. Pt confident about returning home when medically cleared. Following closely. LEO Curtis
[2018-02-23] MEDS: POTASSIUM CHLORIDE 20 MEQ/15 ML UDC PO (17:44)
[2018-02-23] MEDS: ENOXAPARIN 40 MG/0.4 ML SYRINGE SUBCUT (20:11)
--- NOTE | 2018-02-23 20:20 | P.PN_ITS ---
Subjective Date Patient Seen: 02/23/18 Time Patient Seen: 10:17 Interval history: Patient's was pain at her ostomy site. She says she is passing a lot of liquid bowel movements but not a lot of gas. C diff was negative. Exam Vital Signs (past 8 hours): Vital Signs - 8 hr 3 02/23/18 13:15 02/23/18 16:40 02/23/18 16:54 Temperature 97.8 F 98.1 F Pulse Rate 90 93 H Respiratory Rate 17 19 Blood Pressure 155/69 H 155/77 H Pulse Oximetry 97 97 92 Pulse Oximetry 92 Oxygen Delivery Method Room Air Oxygen Flow Rate 0 Narrative Exam Narrative: Ileostomy site looks a little redder. I removed the stitches and it opened and drained pus. This was cultured. Abdomen is otherwise little distended but soft. Objective Labs Result Diagrams: 02/23/18 05:05 02/23/18 13:47 Labs: Laboratory Results - last 24 hr 02/23/18 02/23/18 02/23/18 05:05 05:05 13:47 WBC 9.5 RBC 2.88 L Hgb 8.8 L Hct 25.2 L MCV 87.7 MCH 30.4 MCHC 34.7 RDW 13.8 Plt Count 328 Neut % (Auto) 65.7 Lymph % (Auto) 15.2 L [place] % (Auto) 14.0 Eos % (Auto) 4.5 H Baso % (Auto) 0.6 Neut # (Auto) 6300 H Sodium 141 Potassium 2.5 L* 3.0 L Chloride 104 Carbon Dioxide 28 BUN 9 Creatinine 0.70 Estimated GFR > 60.0 BUN/Creatinine Ratio 12.9 Glucose 103 Calcium 7.5 L Assessment & Plan Post-op Postoperative Procedures Operation Date: 02/16/18 10:15 Actual Procedures Side Surgeon p Revision of Colon Anastomosis/Ileostomy Closure Jett Garay MD Postoperative status: anemia (Operative as well as frequent blood draws.) and other (Placed back on antibiotics due to the pus in her wound.) Postoperative plan: ambulate, advance diet and other (Resumed antibiotics) Time Spent With Patient 25 - 35 minutes Quality VTE Deep Vein Thrombosis/Pulmonary Embolism Present on Admission: No
--- NOTE | 2018-02-23 20:44 | PC.NURSE ---
Pt ambulating into bathroom. Small loose stool. Pt c/o pain to RLQ. Rating pain 3 of 10. Pt requesting 1 apap. Pt states I don't plan on filling my belly full of pills. Abd distended. Drsg to old ostomy site with some drainage. Steri-strips to mid-line abd CDI. Assist back to bed and position for comfort. IV fluid infusing. Pt using call light appropriately. Call light in reach.
[2018-02-24] VITALS (7 sets, daily range): BP systolic 112–155; BP diastolic 60–77; PULSE 84–91; RESP 16–20; TEMP 36.1–36.9; O2SAT 93–98
[2018-02-24] MEDS: CLINDAMYCIN 900 MG/50 ML PIGGYBACK 50 MG IV ×3 (05:17→21:28)
[2018-02-24] MEDS: DEXTROSE 5%-0.45% NS 1,000 ML 42 ML IV (05:17)
[2018-02-24] MEDS: POTASSIUM CHLORIDE 20 MEQ/15 ML UDC 40 MEQ PO (09:08)
[2018-02-24] MEDS: GABAPENTIN 300 MG CAPSULE PO ×2 (09:09→20:27)
--- NOTE | 2018-02-24 09:41 | PC.NURSE ---
pt showered with 1p assist. RLQ wound drsg changed. wound bed pink, old dressing with rose drainage, no odor. area tender for pt.
[2018-02-24] MEDS: ACETAMINOPHEN 325 MG TABLET 650 MG PO ×2 (09:44→16:49)
[2018-02-24 12:59] LABS: HEMOLYSIS < 15 (0-50)
--- NOTE | 2018-02-24 15:05 | PC.NURSE ---
Patient transferred to room 211 from ICU. Clindamycin and levofloxacin for infection. Wound culture result of gram + (1+) staph. Dressing change this AM in ICU, dressing currently cdi. Patient is SBA to bathroom, but felt unbalanced when up at 1509 at sink.
[2018-02-24] MEDS: levoFLOXacin 500 MG/100 ML PIGGYBACK 100 MG IV (16:47)
[2018-02-24] MEDS: POTASSIUM CHLORIDE 20 MEQ TAB PO (16:49)
[2018-02-24] MEDS: POTASSIUM CHLORIDE 20 MEQ TAB 40 MEQ PO (18:38)
[2018-02-24] MEDS: ENOXAPARIN 40 MG/0.4 ML SYRINGE SUBCUT (20:27)
[2018-02-24] MEDS: DIPHENOXYLATE/ATROP 2.5/0.025 TABLET 1 EACH PO (20:31)
[2018-02-25] VITALS (8 sets, daily range): BP systolic 123–144; BP diastolic 60–78; PULSE 83–96; RESP 16–20; TEMP 36.7–37.3; O2SAT 94–97
--- NOTE | 2018-02-25 05:01 | PC.NURSE ---
Assumed care of pt form outgoing shift at 2300 6-15. Pt asleep, arouses to voice. Pt complains of pain. compliant with med pass and nursing assessments. pt up to void and back to bed. Pt has water at bedside. denied need for pain medication. Pt bed in lowest, locked position. Pt bed alarm on, side rails upx3. belongings and call light within reach. will continue to monitor pt for safety.
[2018-02-25] MEDS: CLINDAMYCIN 900 MG/50 ML PIGGYBACK 20 MG IV (05:28)
[2018-02-25] MEDS: FERROUS SULFATE 325 MG TABLET PO ×2 (08:34→17:18)
[2018-02-25] MEDS: GABAPENTIN 300 MG CAPSULE PO ×2 (08:34→20:54)
[2018-02-25] MEDS: POTASSIUM CHLORIDE 20 MEQ TAB 40 MEQ PO ×2 (08:34→17:17)
[2018-02-25] MEDS: DIPHENOXYLATE/ATROP 2.5/0.025 TABLET 1 EACH PO (08:35)
[2018-02-25] MEDS: ACETAMINOPHEN 325 MG TABLET 650 MG PO ×3 (08:37→20:53)
[2018-02-25] MEDS: DEXTROSE 5%-0.45% NS 1,000 ML 42 ML IV (08:39)
[2018-02-25 08:43] LABS: HEMOLYSIS < 15 (0-50)
[2018-02-25 08:45] LABS: Add Manual Diff / Slide Review NO; Basophils Percent Auto 0.6 % (0-2); Eosinophils Percent Auto 2.7 % (2-4); Hematocrit 26.8 % (36-46); Hemoglobin 9.2 g/dL (12.0-16.0); Lymphocytes Percent Auto 15.9 % (25-40); Mean Corpuscular HGB Conc 34.3 % (30-36); Mean Corpuscular Hemoglobin 30.3 PG (26-34); Mean Corpuscular Volume 88.3 fL (80-100); Monocytes Percent Auto 14.4 % (3-14); Neutrophils Absolute Auto 7600 /uL (3000-5900); Neutrophils Percent Auto 66.4 % (50-75); Platelet Count 420 X10^3/uL (150-400); Red Blood Cell Count 3.04 X10^6/uL (4.0-5.2); White Blood Cell Count 11.5 X10^3/uL (4.5-11.0)
[2018-02-25] MEDS: VANCOMYCIN 1,000 MG/200 ML FROZ.PIGGY 200 MG IV ×2 (09:52→21:37)
--- NOTE | 2018-02-25 12:16 | P.PN_ITS ---
Subjective Date Patient Seen: 02/25/18 Time Patient Seen: 12:10 Interval history: Patient states pain is minimal. Controlled with oral Tylenol. Continues to have frequent loose stools but not particularly voluminous. No pain with defecation. No nausea or vomiting. Tolerating a diet without issue. Denies subjective fever or chills. No shortness of breath. Exam Vital Signs (past 8 hours): Vital Signs - 8 hr 3 02/25/18 05:00 02/25/18 08:00 02/25/18 09:46 Temperature 99.1 F 98.6 F Pulse Rate 96 H 90 Respiratory Rate 16 16 Blood Pressure 123/60 H 144/72 H Pulse Oximetry 95 97 97 Pulse Oximetry 97 Oxygen Delivery Method Room Air Oxygen Flow Rate 0 Narrative Exam Narrative: Well-nourished well-developed female sitting comfortably in the bedside chair in no acute distress. Alert oriented x3 Sclera nonicteric Regular rate and rhythm Abdomen is soft and nondistended. Midline lower incision is healing nicely without erythema or ecchymoses. Her ileostomy incision is open with surrounding mild edema and erythema. I personally changed to wet-to-dry saline dressing and she is showing evidence of early granulation throughout the wound bed. No evidence of dehiscence. No gross pus. Extremities show no clubbing or cyanosis Objective Labs Result Diagrams: 02/25/18 08:10 02/25/18 08:10 Labs: Laboratory Results - last 24 hr 02/24/18 02/25/18 02/25/18 12:40 08:10 08:10 WBC 11.5 H RBC 3.04 L Hgb 9.2 L Hct 26.8 L MCV 88.3 MCH 30.3 MCHC 34.3 RDW 14.0 Plt Count 420 H Neut % (Auto) 66.4 Lymph % (Auto) 15.9 L [place] % (Auto) 14.4 H Eos % (Auto) 2.7 Baso % (Auto) 0.6 Neut # (Auto) 7600 H Potassium 3.0 L 3.0 L Culture show methicillin-resistant Staphylococcus aureus from the wound drainage. Organism is resistant to levofloxacin and clindamycin. Assessment & Plan Plan: Assessment/Plan Narrative: 72-year-old female with resolved ileus status post ileostomy reversal, but complicated by wound infection. Wound is showing MRSA. We will discontinue the levofloxacin and clindamycin. Changed to IV vancomycin. Peak and trough levels ordered for tomorrow around the 3rd dose. I do not anticipate that she will need long-term IV antibiotics following discharge. Therefore will not obtain PICC line today. I believe she would benefit from 2 or 3 days of intravenous antibiotics here in the hospital until the wound shows evidence of further healing and decreasing erythema/cellulitis at the edges. At that time she may do well with simply oral Bactrim and rifampin to which the organism is sensitive. Continue twice daily wet-to-dry dressing changes. Ambulate and shower as desired. Continue regular diet. If she continues to have significant loose stools then repeat PCR stool studies/cultures, including Clostridium difficile. She will likely need home health nursing assistance for wound care. I discussed all the above with the patient in detail. All questions were answered to her satisfaction, and she voiced understanding. Orders were written. Quality VTE Deep Vein Thrombosis/Pulmonary Embolism Present on Admission: No
--- NOTE | 2018-02-25 13:57 | CM.DPC ---
Met with patient and spouse in room to discuss DC planning needs; Introduced myself and role of dc principal planner; DC Assess: Patient wound cultures returned and showed (+) for MRSA; Patient is now receiving IV Vanco, nursing explains they will be ordering a PICC as patient will likely need HH for continued wound care as well as continued IV ABX at time of Discharge, Plan for IV ABX is pending; DC Plan: Patient / spouse prefer [facility] for the wound care; Referral called into [facility] service and expecting a return call to confirm referral; HH face to face form is attached to the patient's face sheet in prep fro discharge; Waiting to hear back from [facility] to confirm they received the referral; No other questions or needs assessed during DC planning conversation with patient and spouse; Discharge Planning/Care Management CM Discharge Assessment Start: 02/17/18 12:56 Freq: Status: Active Protocol: Document 02/17/18 12:56 (Rec: 02/17/18 12:58 [id number]) Discharge Planning Assessment History Provided By Patient Has Patient been admitted in last 30 No days? Is this patient on Medicare? Yes Prior Living Arrangements House Household Members spouse Type of transporation used prior to Relies on Others admit Comment Patient is able to drive but prefers to have spouse do the driving. Independent with ADL's Yes Is patient alert and oriented? Yes Discharge Plan Home Additional Comment Patient is expecting to discharge home with supportive spouse. Review Status In Process Next Review Date 02/19/18 Next Review Type Continued Stay Review Document 02/25/18 13:55 TBD (Rec: 02/25/18 13:56 TBD [email or web address]) Discharge Planning Assessment History Provided By Patient Has Patient been admitted in last 30 No days? Is this patient on Medicare? Yes Prior Living Arrangements House Household Members spouse Type of transporation used prior to Relies on Others admit Comment Patient is able to drive but prefers to have spouse do the driving. Independent with ADL's Yes Is patient alert and oriented? Yes Patient Discharge Plan Description Home with Home Health Referrals Initiated Home Health Discharge Plan Home with Home Health Transportation Arrangement Patient spouse will be providing transport to home; Additional Comment Patient is expecting to discharge home with supportive spouse. Review Status In Process Next Review Date 02/19/18 Next Review Type Continued Stay Review
--- NOTE | 2018-02-25 14:40 | PC.NURSE ---
Pt dressing changed by Dr. Moura this morning at the bedside with wet to dry dressing. 1, 4x4 moistened with NS packed into wound and topped with second 4 x 4 loosely.) Pt tollerated well. has been instructed in dressing change. Pt has been informed of her lab results showing MRSA growing in wound. Dr. Moura has been notified and new orders received.
[2018-02-25] MEDS: ENOXAPARIN 40 MG/0.4 ML SYRINGE SUBCUT (20:53)
[2018-02-26 00:30] VITALS: O2SAT 96
--- NOTE | 2018-02-26 04:24 | PC.NURSE ---
Assumed care of pt form outgoing shift at 2300 6-16. Pt awake. nursing assessment completed and charted. Pt denies pain. pt up to void and back to bed pt has had 2 loose stools this shift so far. unable to send sample as urine was mixed in with sample. will try to collect a different sample. Pt has water at bedside. denied need for pain medication. Pt bed in lowest, locked position. Pt bed alarm on, side rails upx3. belongings and call light within reach. will continue to monitor pt for safety.
[2018-02-26 07:00] VITALS: BP 145/64; PULSE 81; RESP 16; O2SAT 95
[2018-02-26 08:34] LABS: Vancomycin Trough 13.8 ug/mL (10-20)
[2018-02-26] MEDS: GABAPENTIN 300 MG CAPSULE PO ×2 (08:43→21:25)
[2018-02-26] MEDS: FERROUS SULFATE 325 MG TABLET PO ×2 (08:43→16:55)
[2018-02-26] MEDS: ACETAMINOPHEN 325 MG TABLET 650 MG PO ×2 (08:43→16:55)
[2018-02-26] MEDS: POTASSIUM CHLORIDE 20 MEQ TAB 40 MEQ PO ×3 (08:44→16:55)
--- NOTE | 2018-02-26 09:48 | PM.PN.1 ---
Subjective Date Patient Seen: 02/26/18 Time Patient Seen: 09:48 Interval history: Patient having minimal pain. She describes this mostly as discomfort well controlled with current oral medications. Denies nausea or vomiting. Tolerating a regular diet although she prefers to stay with mechanical soft diet. Continues to have frequent loose small volume stools. No distension. Passing copious flatus. No subjective fever or chills. Denies chest pain or shortness of breath. Exam Vital Signs (past 8 hours): Pulse Oximetry 96 Oxygen Delivery Method Room Air Oxygen Flow Rate 0 Narrative Exam Narrative: Well-nourished well-developed female in no acute distress. Alert oriented x3. Sitting comfortably in bedside chair with at the bedside. She has just finished her breakfast tray without difficulty. Chest clear to auscultation bilaterally Abdomen soft and nondistended. She is minimally tender to palpation. No guarding or rebound. Midline abdominal wound is clean, dry, and intact without erythema or ecchymoses. Ileostomy wound continues to granulate nicely with no evidence of significant debris. No gross pus. Skin edges are now less edematous and much less erythematous today. Extremities show no clubbing, cyanosis, or edema I personally change the wet-to-dry dressing at the open right lower quadrant wound while the house been observed. He plans to perform dressing care at home. He does have some experience with this from recent drainage of gluteal abscess after which he performed packing changes. Objective Labs Result Diagrams: 02/25/18 08:10 02/25/18 08:10 Labs: Laboratory Results - last 24 hr 02/26/18 08:00 Vancomycin Trough 13.8 Assessment & Plan Plan: Assessment/Plan Narrative: 72-year-old female who continues to do well following ileostomy closure and anastomotic revision. She does have MRSA infection of the ileostomy wound which is now under control. She is responding nicely to dressing changes and intravenous vancomycin. Again, I do not believe she will require long-term IV vancomycin as the wound is clean and open with evidence of significant granulation. Wound will be allowed to heal by secondary intention. We will continue intravenous vancomycin for at least another 24 hr. Likely home on Bactrim and rifampin to complete full antibiotic coverage for MRSA. Ambulate as tolerated. Supplement potassium and magnesium. Repeat laboratory studies tomorrow. Plan to send a stool sample for full PCR pathogenic analysis. All the above discussed with the patient, patient's , and nursing staff. All questions were answered to the patient's satisfaction, and she voiced understanding. Orders were written. Quality VTE Deep Vein Thrombosis/Pulmonary Embolism Present on Admission: No
[2018-02-26] MEDS: MAGNESIUM SULFATE 2 GM/50 ML PIGGYBACK IV (10:48)
[2018-02-26 10:51] LABS: Vancomycin Peak 11.8 ug/mL (20-40)
[2018-02-26] MEDS: VANCOMYCIN 1,000 MG/200 ML FROZ.PIGGY 200 MG IV ×2 (13:14→21:25)
[2018-02-26] MEDS: DEXTROSE 5%-0.45% NS 1,000 ML 42 ML IV (13:43)
--- NOTE | 2018-02-26 13:58 | CM.DPC ---
DCP: continued: Case received and EMR for last several days is reviewed. Note that Dr. Moura saw pt this morning and changed surgical dressing with pt's spouse observing. Dr. Moura has clarified that IV antibiotics are not planned after d/c. Pt will be here a couple more days and then is expected to go home or oral antibiotics. Checked in with pt to confirm her d/c plan. She confirms that her will be the one primarily doing the dressing changes but they do wish the expertise and oversight of RN. Called [facility] in followup to yesterday's d/c planning note. Katherine confirms she received the referrral and that all will be processed on Tuesday (tomorrow). She was unsure if clinical had been faxed. Op report and today's update is faxed now. Face/Face paperwork is filled out with need for surgeon to complete with [facility],time and date Need: home health RN order prior to or at d/c. Will fax these to [facility] when completed. Will check in tomorrow and follow.
[2018-02-26 14:20] LABS: Clostridium Difficile Tox PCR Negative for C. diff
[2018-02-26 15:00] VITALS: O2SAT 97
[2018-02-26 15:10] VITALS: BP 157/78; PULSE 90; RESP 17; TEMP 37.2; O2SAT 96
[2018-02-26 20:50] VITALS: BP 147/83; PULSE 83; RESP 17; TEMP 36.4; O2SAT 95
[2018-02-26] MEDS: ENOXAPARIN 40 MG/0.4 ML SYRINGE SUBCUT (21:25)
[2018-02-26 23:35] VITALS: BP 143/73; PULSE 83; RESP 16; TEMP 37; O2SAT 96
[2018-02-27] MEDS: ACETAMINOPHEN 325 MG TABLET 650 MG PO ×2 (00:16→13:01)
[2018-02-27 01:16] VITALS: O2SAT 96
[2018-02-27 05:47] VITALS: BP 150/79; PULSE 89; RESP 16; TEMP 36.4; O2SAT 96
[2018-02-27 05:58] LABS: Hematocrit 26.3 % (36-46); Hemoglobin 8.9 g/dL (12.0-16.0); Mean Corpuscular HGB Conc 33.7 % (30-36); Mean Corpuscular Hemoglobin 29.8 PG (26-34); Mean Corpuscular Volume 88.4 fL (80-100); Platelet Count 510 X10^3/uL (150-400); Red Blood Cell Count 2.97 X10^6/uL (4.0-5.2); White Blood Cell Count 11.9 X10^3/uL (4.5-11.0)
[2018-02-27 06:01] LABS: Add Manual Diff / Slide Review YES
[2018-02-27 06:03] LABS: Blood Urea Nitrogen 7 mg/dL (7-17); Calcium 7.9 mg/dL (8.4-10.2); Carbon Dioxide 25 mmol/L (22-32); Chloride 105 mmol/L (98-107); Estimated Glomerular Filt Rate > 60.0 mL/min (>60); Glucose 106 mg/dL (80-110); HEMOLYSIS < 15 (0-50); Magnesium 2.4 mg/dL (1.6-2.3); Potassium 3.2 mmol/L (3.4-5.1); Sodium 140 mmol/L (137-145)
[2018-02-27 06:22] LABS: Neutrophils Absolute Manual 8330 /uL (3000-5900); Total Cells Counted 100
[2018-02-27 06:23] LABS: RBC Morphology Normal Morphology
--- NOTE | 2018-02-27 08:38 | PM.DS.1 ---
History of Present Illness Date Patient Seen: 02/27/18 Time Patient Seen: 08:38 Chief complaint: [id number] Narrative: 72-year-old female admitted for elective colonic anastomotic revision with ileostomy reversal following emergent procedure for perforated diverticulitis in the past. Discharge Providers Date of admission: 02/16/18 09:29 Primary care physician: Aruna Serrano PA-C Consults: 02/16/18 15:46 Consult to Discharge Planning Routine Comment: 02/24/18 10:16 Consult to Discharge Planning Routine Comment: home today or tomorrow. Home health wound care 02/26/18 13:54 Consult to Home Health Routine Comment: RN for wound care Reason For Exam: RN for wound care Discharge provider: Ryan Moura MD Summary Discharge Diagnosis: 1. Ileostomy reversal 2. Colonic anastomosis revision 3. 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 Postoperative diarrhea which is not unanticipated following this procedure. No evidence of infectious diarrhea was noted on cultures. 5. Iron deficiency anemia 6. Gastroesophageal reflux disease 7. Hypokalemia secondary to diarrhea, resolved 8. History of diverticulitis with abscess as above 9. History of right buttock abscess subsequently drained, resolved Hospital Course: Patient was taken to the operating room for the above surgical procedures which she tolerated well. Postoperatively she was admitted to the ICU for epidural pain catheter management pain control. This worked well and she was taken to the regular surgical floor where she remained afebrile and hemodynamically stable. She had a small ileus that was not unanticipated after the nature of her surgery which subsequently resolved spontaneously. She did began to have post ileostomy diarrhea which again is not unanticipated. Condition is stable. She has had no evidence of infectious diarrhea on cultures. However, she did have evidence of purulent drainage from the ileostomy closure incision. Culture confirmed MRSA. She was begun on intravenous vancomycin given the sensitivity profile of the organism. With the intravenous antibiotics as well as twice daily wet-to-dry dressing changes the erythema and cellulitis resolved. Wound is clean and granulating well at the time of discharge. She has been sent home on Bactrim and rifampin in lieu of intravenous long-term vancomycin given the healing nature of the wound without evidence of ongoing significant infection. Pain is well controlled with anti inflammatory medications only. She is ambulating without difficulty. Tolerating a regular diet at discharge. has been taught wound care, and discharge coordinators have arranged for home health throughout the week as well. She will follow up in several days in the surgery clinic. However, she has been instructed to call or return sooner for fever, chills, progressive wound drainage, progressive abdominal pain, inability to tolerate a diet, or any other concerns. All questions were answered to her satisfaction, and she voiced understanding. Status at Discharge Cognitive/behavioral status at discharge: Alert oriented x3 Functional status at discharge: uses cane/walker Overall status at discharge: patient is progressing back to baseline Time Spent with Patient Less than 30 minutes Exam Vital Signs (past 8 hours): Vital Signs - 8 hr 02/27/18 01:16 02/27/18 05:47 Temperature 97.6 F Pulse Rate 89 Respiratory Rate 16 Blood Pressure 150/79 H Pulse Oximetry 96 96 Pulse Oximetry 96 Oxygen Delivery Method Room Air Oxygen Flow Rate 0 Narrative Exam Narrative: Adult female resting comfortably in bedside chair in no acute distress. Alert oriented x3. Sclera nonicteric Chest clear to auscultation bilaterally with regular rate and rhythm Abdomen is soft and nondistended. She is appropriately tender but without guarding or rebound. Ileostomy open wound packing is changed. Wound bed is granulating nicely without significant exudate. No gross pus. Wound edges are slightly indurated but without cellulitis or significant erythema. Midline incision is healing nicely. Lower extremities show no evidence of clubbing or cyanosis. Objective Labs Result Diagrams: 02/27/18 05:35 02/27/18 05:35 Labs: Laboratory Results - last 24 hr 02/26/18 02/26/18 02/27/18 10:00 Unknown 05:35 WBC 11.9 H RBC 2.97 L Hgb 8.9 L Hct 26.3 L MCV 88.4 MCH 29.8 MCHC 33.7 RDW 14.0 Plt Count 510 H Neut % (Auto) Not Reportable Lymph % (Auto) Not Reportable [place] % (Auto) Not Reportable Eos % (Auto) Not Reportable Baso % (Auto) Not Reportable Total Counted 100 Seg Neutrophils % 69.0 Band Neutrophils % 1.0 L Lymphocytes % (Manual) 12.0 L Monocytes % (Manual) 13.0 H Eosinophils % (Manual) 4.0 Metamyelocytes % 1.0 H Neutrophils # (Manual) 8330 H RBC Morphology Normal morphology Sodium Potassium Chloride Carbon Dioxide BUN Creatinine Estimated GFR BUN/Creatinine Ratio Glucose Calcium Magnesium Vancomycin Peak 11.8 L C. difficile Tox (PCR) Negative for c. diff 02/27/18 05:35 WBC RBC Hgb Hct MCV MCH MCHC RDW Plt Count Neut % (Auto) Lymph % (Auto) [place] % (Auto) Eos % (Auto) Baso % (Auto) Total Counted Seg Neutrophils % Band Neutrophils % Lymphocytes % (Manual) Monocytes % (Manual) Eosinophils % (Manual) Metamyelocytes % Neutrophils # (Manual) RBC Morphology Sodium 140 Potassium 3.2 L Chloride 105 Carbon Dioxide 25 BUN 7 Creatinine 0.70 Estimated GFR > 60.0 BUN/Creatinine Ratio 10.0 Glucose 106 Calcium 7.9 L Magnesium 2.4 H Vancomycin Peak C. difficile Tox (PCR) Discharge Plan Discharge Plan Patient Disposition: Home Health Service Discharge comment: Avoid lifting or straining. Do not lift over 10 lb for another [address] You may ride in a car. Taking multiple vitamin with iron every day. You may take extra iron as well. Discharge Med Rec/Prescriptions Prescriptions: New diphenoxylate-atropine 2.5-0.025 mg Tablet 1 ea PO PRN PRN (Reason: Diarrhea) Qty: 10 RF: 0 gabapentin [Neurontin] 300 mg Capsule 300 mg PO BID Qty: 30 RF: 0 ferrous sulfate 325 mg (65 mg iron) Tablet 325 mg PO BIDWM Qty: 60 RF: 0 rifampin 300 mg capsule 600 mg PO DAILY Qty: 14 RF: 0 sulfamethoxazole-trimethoprim [Bactrim DS] 800-160 mg tablet 1 tab PO BID Qty: 14 RF: 0 potassium chloride [Klor-Con M20] 20 mEq Tablet,Er Particles/Crystals 40 meq PO TIDWM Qty: 90 RF: 0 Continue acetaminophen [Tylenol Extra Strength] 500 MG tablet 325 mg PO BEDTIME PRN (Reason: pain) Qty: 0 RF: 0 famotidine 20 mg Tablet 20 mg PO BID RF: 0 Follow up/Referrals: Jett Garay MD [Physician] - 03/03/18 1:00 pm (above time is tentative. please call office at above number to confirm appointment time.) Provider Discharge Instructions Diet: Diet as Tolerated Activity: You may shower. Avoid tub. Avoid pools. You may walk. Wound Care Report to your healthcare provider any signs of infection, such as:: chills, fever, night sweats and increased pain Dressing: Normal saline wet to dry at least twice a day. Removed prior to shower and then replaced after. Discharge Data Primary Care Provider: Aruna Serrano Attending Provider: Jett Garay Admit Date/Time: 02/16/18 09:29 Quality VTE Deep Vein Thrombosis/Pulmonary Embolism Present on Admission: No
[2018-02-27 08:41] VITALS: BP 160/69; PULSE 79; RESP 18; TEMP 36.6; O2SAT 98
--- NOTE | 2018-02-27 08:41 | CM.DPC ---
Addendum entered by Rocio Whitfield LPN 02/27/18 08:58: spoke now with Katherine/[facility]. Confirmed d/c for today. Katherine anticipates RN will go out tomorrow. Faxed needed paperwork to both faxes: [phone] and [phone] Original Note: DCP: continued: Dr. Moura was just here to see pt. Met with him to finalize the HH paperwork. FACE/FACE completed as well as HH RN order/both are being faxed now to [facility] as well as the d/c summary. Dr. Moura has ok'd pt for home today. Checked in with pt. She is comfortable with same and calling her to pick her up. Left a vm for [facility] re the d/c today and request call back with date of planned open to service. Will make sure pt has the HH contact numbers before she goes.
[2018-02-27] MEDS: VANCOMYCIN 1,000 MG/200 ML FROZ.PIGGY 200 MG IV (09:15)
[2018-02-27] MEDS: FERROUS SULFATE 325 MG TABLET PO (09:16)
[2018-02-27] MEDS: POTASSIUM CHLORIDE 20 MEQ TAB 40 MEQ PO (09:16)
[2018-02-27] MEDS: GABAPENTIN 300 MG CAPSULE PO (09:16)
[2018-02-27 09:43] VITALS: O2SAT 97
--- NOTE | 2018-02-27 09:48 | PC.NURSE ---
Addendum entered by Kassy Almeida R.N. 02/27/18 14:10: Discharge: Late entry (left approx 1300) IV dc'd intact. Reviewed all d/c instructions thorougly with patient and . confident in performing wet-to-dry dressing change at home, given supplies needed to get them through a few changes. They have follow up scheduled with Dr Garay and they know the time and date. Instructed to call MD with any s/sx infection, bowel obstruction, or with any other concerns that arise prior to follow up. Given education info on ileostomy reversal. Patient and verbalized understanding of all d/c info and stated no further questions. All belongings sent with patient, taken out to private vehicle via wheelchairl Original Note: Shift summary: Alert and oriented X3. Tolerating diet without N/V. Reports still having diarrhea- MD aware, stool sample was negative for C.diff. BT+, flatus+. Abd soft, nontender. Midline incision healing and KELLI. Wet-to-dry abd dressing changed by Dr Moura this morning when he rounded, dressing remains C/D/I. Denies fever, chills. Lungs CTA, HRR. SpO2 on RA 97%. Plan is to discharge home today. Paged Dr Moura to ask about antibiotics at discharge (he printed other scripts but not abx). Patient's is here and will transport when the time comes. They are aware that we are waiting on him to proceed with d/c. Able to make needs known and calls appropriately. Up in chair, light in reach.
== END 2018-02-27 13:11 | disposition home health service (06) | DRG 330 ==
LOC: AC 09:46 → ICU 10:44 → AC 02-24 10:30
PROVIDERS: Surgery; Admitting Provider Specialist; Family Provider Internal Medicine; PCP Physician Assistant; Visit Provider Specialist
PROC: 0DBB0ZZ Excision of Ileum, Open Approach (ICD-10-PCS; CPT 44620; principal; 2018-02-16 10:15)
DX: K56.699 Other intestinal obstruction unspecified as to partial versus complete obstruction (principal); T81.4XXA Infection following a procedure, initial encounter; D62 Acute posthemorrhagic anemia; Z93.2 Ileostomy status; K56.7 Ileus, unspecified; B95.62 Methicillin resistant Staphylococcus aureus infection as the cause of diseases classified elsewhere; E87.6 Hypokalemia; D50.9 Iron deficiency anemia, unspecified; K21.9 Gastro-esophageal reflux disease without esophagitis; K52.89 Other specified noninfective gastroenteritis and colitis
CPT/HCPCS: 36415; 44625; 74022; 80048; 80053; 80202; 83735; 84132; 85025; 87015; 87045; 87070; 87075; 87077; 87147; 87186; 87205; 87427; 87493; 87899; 88304; 88307; J0330; J1100; J1650; J1940; J1956; J2405; J2550; J2704; J2765; J3010; J3370; J3480

== ENCOUNTER → 2018-05-04 14:56 | Outpatient (CLI) | payer MEDICARE, OTHER, SELFPAY ==
[2018-02-16 18:19] VITALS: BMI 24.6
== END ==
PROVIDERS: Family Provider Internal Medicine; PCP Physician Assistant; Visit Provider Student in an Organized Health Care Education/Training Program
DX: M85.852 Other specified disorders of bone density and structure, left thigh (principal); Z78.0 Asymptomatic menopausal state; Z90.722 Acquired absence of ovaries, bilateral
CPT/HCPCS: 77080

== ENCOUNTER 2018-07-08 17:39 | Emergency (ER) | payer MEDICARE, OTHER, SELFPAY ==
[2018-02-16 18:19] VITALS: BMI 24.6
[2018-07-08 17:53] VITALS: BP 171/81; PULSE 89; RESP 18; TEMP 37; O2SAT 95; BMI 23.1
--- NOTE | 2018-07-08 20:00 | ED.ABDPAIN ---
HPI - Abdominal Pain General Chief Complaint: Abdominal Pain Stated Complaint: FEELS LIKE THERE IS A MASS ON THE LEFT SIDE Time Seen by Provider: 07/08/18 20:00 Source: patient and family Mode of arrival: ambulatory Limitations: no limitations History of Present Illness HPI narrative: 72-year-old nonsmoking female presents with a chief complaint of left lower quadrant pain which has been gradually worsening over the past few days. She denies any injury nor fever but has had some chills. She states she has had some decreased bowel movements but denies any liquid stool. She denies any dysuria, frequency or urgency.She denies any radiation of her pain. She has minimal palliation but states worsening of pain with palpation and some movement. She does have a relatively recent history of severe diverticulitis with ileostomy and subsequent reversal last summer. MD complaint: abdominal pain Onset (ago): day(s) Pain Consistency: constant Location: LLQ Severity: moderate Quality: cramping and aching Radiation: none Migration to: no migration Relieving factors: nothing Exacerbating factors: bowel movement and movement Associated symptoms: denies other symptoms Related Data Home Medications Medication Instructions Recorded Confirmed acetaminophen [Tylenol Extra 325 mg PO BEDTIME PRN #0 10/03/17 03/31/18 Strength] famotidine 20 mg PO BID 02/08/18 03/03/18 aspirin 325 mg PO DAILY 07/08/18 07/08/18 ranitidine HCl 1 tab PO BID 07/08/18 07/08/18 Previous Rx's Medication Instructions Recorded diphenoxylate-atropine 1 ea PO PRN PRN #10 tab 02/27/18 ferrous sulfate 325 mg PO BIDWM #60 tab 02/27/18 gabapentin [Neurontin] 300 mg PO BID #30 cap 02/27/18 potassium chloride [Klor-Con M20] 40 meq PO TIDWM #90 tab 02/27/18 rifampin 600 mg PO DAILY #14 cap 02/27/18 sulfamethoxazole-trimethoprim 1 tab PO BID #14 tab 02/27/18 [Bactrim DS] diphenoxylate-atropine 2.5 2 tab PO Q8H PRN #20 tab 03/03/18 mg-0.025 mg tablet pantoprazole 20 mg tablet,delayed 20 mg PO DAILY #30 tab 03/03/18 release opium tincture 10 mg/mL (morphine) 1 ml PO TID PRN #118 ml 03/08/18 oral ranitidine 150 mg tablet 150 mg PO BID #60 tab 03/31/18 ciprofloxacin HCl 500 mg PO BID #20 tab 07/08/18 metronidazole [Flagyl] 500 mg PO TID 10 Days #30 tab 07/08/18 Allergies Allergy/AdvReac Type Severity Reaction Status Date / Time ampicillin [AMPICILLIN] Allergy Severe Anaphylaxis Verified 02/16/18 10:06 Penicillins [PENICILLINS] Allergy Severe Anaphylaxis Verified 02/16/18 10:06 pentazocine [From TALWIN] Allergy Severe Anaphylaxis Verified 02/16/18 10:06 phenobarbital [PHENOBARBITAL] Allergy Severe Anaphylaxis Verified 02/16/18 10:06 phenylbutazone Allergy Severe Rash Verified 02/16/18 10:06 [From Butazolidin] tetanus toxoid, adsorbed Allergy Unknown Verified 02/16/18 10:06 [TETANUS TOXOID, ADSORBED] Tetanus Vaccines and Toxoid Allergy Unknown (only to Verified 02/16/18 10:06 [TETANUS VACCINES & TOXOID] horse serium) sick in bed 3-4 days & severe pain diazepam [From VALIUM] AdvReac Severe severe Verified 02/16/18 10:06 depression naproxen [From NAPROSYN] AdvReac Severe I wasn't Verified 02/16/18 10:06 there ondansetron AdvReac Severe CONFUSION Verified 02/16/18 10:06 [From ZOFRAN ( AND HYDROCHLORIDE)] DISORIENTATION. propoxyphene [From DARVON] AdvReac Severe insomnia Verified 02/16/18 10:06 codeine [CODEINE] AdvReac Intermediate n/v Verified 02/16/18 10:06 erythromycin base AdvReac Intermediate n/v Verified 02/16/18 10:06 [ERYTHROMYCIN BASE] ibuprofen [From MOTRIN] AdvReac Intermediate elevates Verified 02/16/18 10:06 blood pressure Tetracyclines [TETRACYCLINES] AdvReac Intermediate n/v Verified 02/16/18 10:06 methenamine AdvReac Unknown Hard to Verified 02/16/18 10:06 [From MANDELAMINE] pass urine CHROMIC GUT SUTURES AdvReac Severe REJECT Uncoded 02/16/18 10:06 Review of Systems Review of Systems All systems reviewed & are unremarkable except as noted in HPI and below Constitutional Denies chills, Denies fever(s), Denies lethargy and Denies weakness Eyes Denies change in vision, Denies eye discharge, Denies irritation and Denies loss of vision ENT Ears, Nose, Mouth, and Throat: Denies change in voice, Denies neck pain and Denies sore throat Cardiovascular Denies chest pain, Denies irregular heart rhythm, Denies lightheadedness, Denies palpitations, Denies dyspnea, Denies dyspnea on exertion and Denies orthopnea Respiratory Denies cough, Denies dyspnea, Denies dyspnea on exertion and Denies wheezing Gastrointestinal Gastrointestinal: Reports abdominal pain, Denies change in bowel habits, Denies diarrhea, Denies nausea and Denies vomiting Genitourinary Denies hematuria, Denies flank pain, Denies urinary incontinence and Denies urinary urgency Musculoskeletal Denies neck pain Integumentary/Breasts Denies pruritus, Denies erythema, Denies rash and Denies wounds Neurologic Denies confusion, Denies loss of vision and Denies weakness Psychiatric Denies anxiety, Denies confusion, Denies depression, Denies homicidal ideation and Denies suicidal ideation Endocrine Denies palpitations Hematologic/Lymphatic Denies easy bruising Allergic/Immunologic Denies wheezing [facility] Medical History Brain injury (Acute) Chronic low back pain (Acute) GERD (gastroesophageal reflux disease) (Acute) History of MRSA infection (Acute) History of hysterectomy (Acute) Hyperlipidemia (Acute) Ileostomy present (Acute) Keratosis (Acute) Kidney stones (Acute) Osteoarthritis (Acute) Pneumonia (Acute) Sciatica (Acute) Seasonal allergies (Acute) Spinal stenosis (Acute) Surgical History History of bilateral tubal ligation (Acute) History of meniscectomy of left knee (Acute) History of tracheostomy (Acute) Hx of appendectomy (Acute) Hx of tonsillectomy (Acute) Social History household members: spouse Smoking Status: Never smoker alcohol intake: current Exam Narrative Exam Narrative: GENERAL: This is a well-nourished, well-developed patient, in mild distress. HEAD: Atraumatic. Normocephalic. No temporal or scalp tenderness. EYES: Pupils equal round and reactive. Extraocular motions intact. No scleral icterus. No injection or drainage. ENT: Nose without bleeding, purulent drainage or septal hematoma. Throat without erythema, tonsillar hypertrophy or exudate. Uvula midline. Airway patent. NECK: Trachea midline. No JVD or lymphadenopathy. Supple, nontender, no meningeal signs. CARDIOVASCULAR: Regular rate and rhythm without murmurs, gallops, or rubs. RESPIRATORY: Clear to auscultation. Breath sounds equal bilaterally. No wheezes, rales, or rhonchi. GASTROINTESTINAL: Abdomen soft, mild tenderness, left lower quadrant is most significant, nondistended. No hepato-splenomegaly, or palpable masses. No guarding. EXTREMITIES: No clubbing, cyanosis, or edema. No joint tenderness, effusion, or edema noted. BACK: Nontender without deformity or crepitance. No flank tenderness. NEURO: AOx3. SKIN: No rash or erythema. Initial Vital Signs Initial Vital Signs: Vital Signs Temperature 98.6 F 07/08/18 17:53 Pulse Rate 89 07/08/18 17:53 Respiratory Rate 18 07/08/18 17:53 Blood Pressure 171/81 H 07/08/18 17:53 Pulse Oximetry 95 07/08/18 17:53 Course Orders Ordered: ED Orders 07/08/18 20:01 XR acute abdomen series Stat 07/08/18 20:25 Complete Blood Count AUTO DIFF Stat Comprehensive Metabolic Panel Stat Lipase Stat 07/08/18 21:10 Urine Culture Stat Urine Microscopic Stat 07/08/18 22:05 CT abdomen pelvis w con Stat Discontinued Medications Sodium Chloride (Normal Saline 0.9%) 1,000 mls @ 1,000 mls/hr IV BOLUS ONE Stop: 07/08/18 20:59 Last Infusion: 07/08/18 21:50 Dose: 0 mls/hr Admin: 07/08/18 20:25 Dose: 1,000 mls/hr Levofloxacin (Levaquin) 500 mg PO NOW ONE Stop: 07/08/18 23:38 Last Admin: 07/08/18 23:41 Dose: 500 mg Consultations Consultation #1: Phone consultation with on-call surgeon, Dr. Victor. We have reviewed the patient's history and physical as well as vitals, labs and imaging. With lack of fever and elevated white count which sure the opinion that this may actually be chronic inflammatory change but given patient's clinical presentation including pain agree that treatment with Cipro and Flagyl and close followup are appropriate. Patient refuses any pain meds or antiemetics Vital Signs - 8 hr 07/08/18 17:53 07/08/18 20:01 07/08/18 21:17 Temperature 98.6 F Pulse Rate 89 74 73 Respiratory Rate 18 16 Blood Pressure 171/81 H Blood Pressure [Left Arm] 174/61 H 173/56 H Pulse Oximetry 95 96 98 07/08/18 22:00 07/08/18 23:44 Temperature Pulse Rate 67 79 Respiratory Rate 16 Blood Pressure Blood Pressure [Left Arm] 167/61 H 140/56 L Pulse Oximetry 96 98 MDM - Abdominal Pain Differential Diagnosis Differential diagnosis: Likely abdominal pain, calculus of kidney, constipation, diverticulitis and pancreatitis Medical Records Attestation: I reviewed the patient's medical records. Lab Data Attestation: I reviewed the patient's lab results. Result diagrams: 07/08/18 20:25 07/08/18 20:25 Lab Results 07/08/18 07/08/18 07/08/18 Range/Units 20:25 20:25 21:10 WBC 8.5 (4.5-11.0) X10^3/uL RBC 4.63 (4.0-5.2) X10^6/uL Hgb 13.3 (12.0-16.0) g/dL Hct 39.4 (36-46) % MCV 85.1 (80-100) fL MCH 28.7 (26-34) PG MCHC 33.8 (30-36) % RDW 14.4 (11.6-14.8) % Plt Count 311 (150-400) X10^3/uL Neut % (Auto) 59.6 (50-75) % Lymph % (Auto) 24.8 L (25-40) % [place] % (Auto) 11.6 (3-14) % Eos % (Auto) 3.0 (2-4) % Baso % (Auto) 1.0 (0-2) % Neut # (Auto) 5100 (5541-8860) /uL Sodium 144 (137-145) mmol/L Potassium 4.0 (3.4-5.1) mmol/L Chloride 104 (98-107) mmol/L Carbon Dioxide 27 (22-32) mmol/L BUN 15 (7-17) mg/dL Creatinine 0.90 (0.52-1.04) mg/dL Estimated GFR > 60.0 (>60) mL/min BUN/Creatinine Ratio 16.7 (6-22) Glucose 103 (80-110) mg/dL Calcium 9.2 (8.4-10.2) mg/dL Total Bilirubin 0.3 (0.2-1.3) mg/dL AST 28 (14-36) IU/L ALT 24 (9-52) IU/L Alkaline Phosphatase 61 (38-126) U/L Total Protein 7.4 (6.3-8.2) g/dL Albumin 4.5 (3.5-5.0) g/dL Globulin 2.9 (1.7-4.1) g/dL Albumin/Globulin Ratio 1.6 (1.0-2.8) Lipase 97 (23-300) U/L Urine RBC None seen (0-5/HPF) Urine WBC 1-5/hpf (0-5/HPF) Urine Bacteria None seen (None) Ur Culture Indicated? Specimen cultured Micro UA Comment Not Reportable Point of care testing: Urine Dip Bedside Urine Glucose Negative Bedside Urine Bilirubin - Negative Bedside Urine Ketone - Negative Urine Specific [place] 1.015 Bedside Urine Occult Blood - Negative Bedside Urine pH 6.0 Bedside Urine Protein - Negative Bedside Urine Urobilinogen - Negative Bedside Urine Nitrite - Negative Bedside Urine Leukocytes + 70 Esterase Imaging Data Abdominal x-ray: Radiologist's impression: [address] [address] XRay Report Signed Patient: Nicki Newman GMR#: [id number] : 4Acct:[id number] Age/Sex: 72 / FDate of Service: 07/08/18 Loc: ED Accession Number: [id number] Procedure: XR acute abdomen series Ordering Provider: Deandre Gross D.O. PROCEDURE: XR ACUTE ABDOMEN SERIES INDICATIONS: Abdominal pain TECHNIQUE: One view chest and two views of the abdomen were acquired. COMPARISON: None. FINDINGS: Surgical changes and devices: None. Chest: Lungs are clear. Heart size is normal. No pleural effusions. No pneumoperitoneum. Abdomen: Bowel gas pattern is normal except for mild colonic obstipation. No suspicious calcifications. Visualized solid organ contours appear normal. Bones: No suspicious bony lesions. IMPRESSION: Mild colonic obstipation, no sign of intestinal obstruction or perforation. Dictated by: Fitz Clayton M.D. on 07/08/2018 at 20:40 CT scan - abdomen: Radiologist's impression: Mild thickening at sutures, inflammation versus other. No obstruction or other ominous finding Discharge Plan Departure Patient Disposition: Home Clinical Impression: Abdominal pain, acute, left lower quadrant Instructions: DI for Abdominal Pain-Adult Activity Restrictions/Additional Instructions: *You have been diagnosed with [ left lower quadrant pain, possible early colitis ] *What to do: *Take medications as directed *Follow up with [facility] early in the week, call for an appointment. Let them know you were seen in the Emergency Department and that we ask that you be seen in follow up *Return to ER if you should have any new, worsening or concerning symptoms Prescriptions: New metronidazole [Flagyl] 500 mg tablet 500 mg PO TID 10 Days Qty: 30 RF: 0 ciprofloxacin HCl 500 mg tablet 500 mg PO BID Qty: 20 RF: 0 No Action acetaminophen [Tylenol Extra Strength] 500 MG tablet 325 mg PO BEDTIME PRN (Reason: pain) Qty: 0 RF: 0 opium tincture 10 mg/mL (morphine) tincture 1 ml PO TID PRN (Reason: diarrhea) Qty: 118 RF: 0 diphenoxylate-atropine [Lomotil] 2.5-0.025 mg tablet 2 tab PO Q8H PRN (Reason: diarrhea) Qty: 20 RF: 0 pantoprazole [Protonix] 20 mg tablet,delayed release (DR/EC) 20 mg PO DAILY Qty: 30 RF: 1 ranitidine HCl 150 mg tablet 150 mg PO BID Qty: 60 RF: 0 aspirin 325 mg Tablet 325 mg PO DAILY RF: 0 ranitidine HCl 150 mg tablet 1 tab PO BID RF: 0 famotidine 20 mg Tablet 20 mg PO BID RF: 0 diphenoxylate-atropine 2.5-0.025 mg Tablet 1 ea PO PRN PRN (Reason: Diarrhea) Qty: 10 RF: 0 ferrous sulfate 325 mg (65 mg iron) Tablet 325 mg PO BIDWM Qty: 60 RF: 0 gabapentin [Neurontin] 300 mg Capsule 300 mg PO BID Qty: 30 RF: 0 potassium chloride [Klor-Con M20] 20 mEq Tablet,Er Particles/Crystals 40 meq PO TIDWM Qty: 90 RF: 0 sulfamethoxazole-trimethoprim [Bactrim DS] 800-160 mg tablet 1 tab PO BID Qty: 14 RF: 0 rifampin 300 mg capsule 600 mg PO DAILY Qty: 14 RF: 0 Referrals: Jett Garay MD [Physician] - Aruna Serrano PA-C [Primary Care Provider] -
[2018-07-08 20:01] VITALS: BP 174/61; PULSE 74; O2SAT 96
[2018-07-08] MEDS: SODIUM CHLORIDE 0.9% 1,000 ML 1000 ML IV (20:25)
[2018-07-08 20:33] LABS: Add Manual Diff / Slide Review NO; Hematocrit 39.4 % (36-46); Hemoglobin 13.3 g/dL (12.0-16.0); Lymphocytes Percent Auto 24.8 % (25-40); Mean Corpuscular HGB Conc 33.8 % (30-36); Mean Corpuscular Hemoglobin 28.7 PG (26-34); Mean Corpuscular Volume 85.1 fL (80-100); Monocytes Percent Auto 11.6 % (3-14); Neutrophils Absolute Auto 5100 /uL (3000-5900); Neutrophils Percent Auto 59.6 % (50-75); Platelet Count 311 X10^3/uL (150-400); Red Blood Cell Count 4.63 X10^6/uL (4.0-5.2); Red Cell Distribution Width 14.4 % (11.6-14.8); White Blood Cell Count 8.5 X10^3/uL (4.5-11.0)
[2018-07-08 20:51] LABS: Alanine Aminotransferase 24 IU/L (9-52); Albumin 4.5 g/dL (3.5-5.0); Albumin Globulin Ratio 1.6 (1.0-2.8); Alkaline Phosphatase 61 U/L (38-126); Aspartate Aminotransferase 28 IU/L (14-36); BUN Creatinine Ratio 16.7 (6-22); Bilirubin Total 0.3 mg/dL (0.2-1.3); Blood Urea Nitrogen 15 mg/dL (7-17); Calcium 9.2 mg/dL (8.4-10.2); Carbon Dioxide 27 mmol/L (22-32); Chloride 104 mmol/L (98-107); Estimated Glomerular Filt Rate > 60.0 mL/min (>60); Globulin 2.9 g/dL (1.7-4.1); Glucose 103 mg/dL (80-110); HEMOLYSIS < 15 (0-50); Lipase 97 U/L (23-300); Sodium 144 mmol/L (137-145); Total Protein 7.4 g/dL (6.3-8.2)
[2018-07-08 21:17] VITALS: BP 173/56; PULSE 73; RESP 16; O2SAT 98
[2018-07-08 21:25] LABS: Bacteria Urine None Seen; RBC Urine None Seen (0-5/HPF)
[2018-07-08 21:40] LABS: Culture Indicated Urine Specimen Cultured; WBC Urine 1-5/HPF (0-5/HPF)
[2018-07-08 22:00] VITALS: BP 167/61; PULSE 67; O2SAT 96
--- NOTE | 2018-07-08 22:05 | DI.CT.S_ITS ---
PROCEDURE: CT ABDOMEN PELVIS W CON INDICATIONS: severe lower abdominal pain, hx ileostomy and reanastomosis TECHNIQUE: After the administration of intravenous contrast, 5 mm thick sections acquired from the diaphragm to the symphysis. 5 mm coronal and sagittal reformats were acquired. For radiation dose reduction, the following was used: automated exposure control, adjustment of mA and/or kV according to patient size. COMPARISON: None. FINDINGS: Image quality: Excellent. ABDOMEN: Lung bases: Diffuse scarring/interstitial disease in the visualized lung bases.. Heart size is normal. Solid organs: Liver is normal in size and enhancement. Gallbladder contains gallstones otherwise unremarkable appearance.. Biliary system is non dilated. Pancreas enhances normally. Spleen is normal in size and enhancement. No adrenal nodules. Kidneys demonstrate normal size and enhancement, without hydronephrosis. Simple appearing right renal cyst. Peritoneum and bowel: Numerous bowel surgical anastomoses are seen, and in the region of the terminal ileum there is mild nonspecific ileal wall thickening without definite bowel obstruction. There is mild hazy attenuation in the mesenteric fat No free fluid or air. Nodes and vessels: No retroperitoneal or mesenteric adenopathy by size criteria. Aorta and inferior vena cava are normal in size. Miscellaneous: No ventral hernias. PELVIS: Genitourinary: Bladder wall thickness is normal. Miscellaneous: No inguinal hernias or adenopathy. Diffuse osteopenia and scattered discogenic changes. No compression fracture. IMPRESSION: Overall, no bowel obstruction identified. Mild terminal ileal wall thickening which could be mild reactive change versus infection or inflammation, technically indeterminate. No evidence of bowel obstruction. Mild mesenteric edema, potentially reactive/inflammatory panniculitis although technically indeterminate. Cholelithiasis without other CT evidence of acute cholecystitis. Minimal intraluminal gas is seen within the urinary bladder, potentially from recent catheterization although cannot exclude other less likely etiologies such as occult fistula or infection with gas-forming agent and recommend correlation with urinalysis data. Dictated by: Terrell Israel M.D. on 07/09/2018 at 7:50 Approved by: Terrell Israel M.D. on 07/09/2018 at 8:00
[2018-07-08] MEDS: levoFLOXacin 250 MG TABLET 500 MG PO (23:41)
[2018-07-08 23:44] VITALS: BP 140/56; PULSE 79; RESP 16; O2SAT 98
== END 2018-07-09 00:07 | disposition home or self-care (01) ==
PROVIDERS: Emergency Provider Emergency Medicine; Family Provider Internal Medicine; PCP Physician Assistant
DX: R10.32 Left lower quadrant pain (principal)
CPT/HCPCS: 36415; 74022; 74177; 80053; 81003; 81015; 83690; 85025; 87086; 96360; 99283; 99285; Q9967

== ENCOUNTER → 2021-12-30 09:55 | Outpatient (CLI) | payer MEDICARE, OTHER, SELFPAY ==
[2018-02-16 18:19] VITALS: BMI 24.6
--- NOTE | 2021-12-30 09:58 | DI.RAD.S_ITS ---
PROCEDURE: XR LUMBAR SPINE MIN 4V INDICATIONS: BACK PAIN TECHNIQUE: 5 views of the lumbar spine were acquired, including bilateral oblique views. COMPARISON: None. FINDINGS: Bones: 5 nonrib-bearing vertebrae are present. There is mild levoscoliosis centered at L2-3 level. Degenerative endplate changes and bilateral facet arthrosis throughout lumbar spine is seen. No vertebral body compression fractures. No suspicious bony lesions. Soft tissues: Overlying bowel gas pattern is normal. No suspicious soft tissue calcifications. Oblique images: No pars defects. Suggestion of left-sided bony foraminal stenosis at L3-4 and L4-5 levels are seen. IMPRESSION: 1. No acute compression fracture or spondylolisthesis in lumbar spine. Levoscoliosis as above. Degenerative disc disease throughout lumbar spine. 2. No gross pars defect. Left-sided neural foraminal narrowing at L3-4 and L4-5 levels. Dictated by: Edwardo Max M.D. on 12/30/2021 at 11:57 Approved by: Edwardo Max M.D. on 12/30/2021 at 11:58
== END ==
PROVIDERS: Family Provider Internal Medicine; PCP Student in an Organized Health Care Education/Training Program; Referring Provider Physical Medicine & Rehabilitation; Visit Provider Physical Medicine & Rehabilitation
DX: M51.16 Intervertebral disc disorders with radiculopathy, lumbar region (principal); M41.86 Other forms of scoliosis, lumbar region; M48.061 Spinal stenosis, lumbar region without neurogenic claudication; M54.9 Dorsalgia, unspecified; S06.9X9S Unspecified intracranial injury with loss of consciousness of unspecified duration, sequela; Z86.14 Personal history of Methicillin resistant Staphylococcus aureus infection
CPT/HCPCS: 72110; 99215

== ENCOUNTER → 2022-01-18 11:02 | Outpatient (CLI) | payer MEDICARE, OTHER, SELFPAY ==
[2018-02-16 18:19] VITALS: BMI 24.6
[2022-01-18 14:44] LABS: COVID19 -Nasal RAPID Negative (Negative)
== END ==
PROVIDERS: Family Provider Internal Medicine; PCP Student in an Organized Health Care Education/Training Program; Visit Provider Physical Medicine & Rehabilitation
DX: Z20.822 Contact with and (suspected) exposure to COVID-19 (principal)
CPT/HCPCS: 87635; C9803

== ENCOUNTER 2022-01-19 09:55 | Outpatient (CLI) | payer MEDICARE, OTHER, SELFPAY ==
[2018-02-16 18:19] VITALS: BMI 24.6
[2022-01-19] VITALS (8 sets, daily range): BP systolic 156–193; BP diastolic 70–88; PULSE 78–90; RESP 13–22; TEMP 36.1; O2SAT 93–98
--- NOTE | 2022-01-19 09:56 | DI.RAD.S_ITS ---
PROCEDURE: PAIN L INTERLAMINAR/CAUDAL INJ INDICATIONS: SPONDYLOSIS COMPARISON: [facility], MR, MR LUMBAR SPINE WITHOUT CONTRAST, 08/28/2021, 14:24. [facility], CR, XR LUMBAR SPINE MIN 4V, 12/30/2021, 10:05. FINDINGS: Fluoroscopic spot filming was performed to verify placement of a spinal needle at the L5-S1 level, as labeled on the films. Appropriate location of the needle tip was confirmed by injection of iodinated contrast. IMPRESSION: No significant intraprocedural abnormality. Dictated by: Addy Almanza M.D. on 01/19/2022 at 11:29 Approved by: Addy Almanza M.D. on 01/19/2022 at 11:31
[2022-01-19] MEDS: MIDAZOLAM 2 MG/2 ML VIAL IV (11:20)
[2022-01-19] MEDS: DEXAMETHASONE 10 MG/ML VIAL 20 MG INJ (11:23)
[2022-01-19] MEDS: BUPIVACAINE 0.25% (PF) VIAL 2 ML INJ (11:24)
[2022-01-19] MEDS: IOPAMIDOL 15 ML VIAL 3 ML INJ (11:24)
[2022-01-19] MEDS: BETAMETHASONE 30 MG/5 ML MDV 12 MG IM (11:25)
--- NOTE | 2022-01-19 11:33 | P.PCN_ITS ---
Date/Time/Diagnoses Date of procedure: 01/19/22 Time of procedure: 11:35 Pre-procedure diagnosis: 1. HNP WITH RADICULAR FEATURES, 2. MULTILEVEL CENTRAL STENOSIS, Post-procedure diagnosis: same Procedure Notes Procedure: 1. FLUOROSCOPICALLY GUIDED CONTRAST CONTROLLED INTERLAMINAR EPIDURAL STEROID INJECTION - L5/S1 Indications: Nicki is referred by HUSSAIN Sandy for treatment of Bilateral Foraminal Stenosis L>R LE symptoms. Physician: Peter Sears Total Fluoroscopy time (seconds): 8 Total sedation minutes: 9 Complications: none Procedure in detail & Post-procedure care: FINDINGS Multilevel Central Spinal Stenosis with Nerve Root Compression DESCRIPTION OF PROCEDURE Fluoroscopically guided, contrast-controlled L5/S1 translaminar epidural steroid injection. Following review of allergy and review of potential side effects and complications, including, but not necessarily limited to, infection, allergic reaction, local tissue breakdown, temporary as well as permanent nerve injury, paralysis, stroke and possible , the patient indicated that the patient understood and agreed to proceed. An informed consent document was signed by the patient, witnessed by a nurse, and placed in the patient's chart. Additionally, other treatment options including modalities, medications, and physical therapy were reviewed with the patient. After review of previous anaesthesic history and IV conscious sedation the patient was deemed safe to proceed with today?s procedure with IV conscious sedation as ASA class II designation. Safety time-out was performed to confirm patient ID, procedure to be performed and site of procedure. IV sedation was accomplished with a combination of 1mg of Versed administered by the RN after DO order, titrated to patient comfort during the course of the procedure while the patient remained responsive to all verbal commands. In the prone position, following sterile prep and drape of the lumbar region, the L5/S1 translaminar space was identified fluoroscopically. The skin was anesthetized via a 25-gauge, 1.5-inch needle with 1% lidocaine solution. At this point, a 22-gauge short bevel spinal needle was atraumatically introduced and advanced under fluoroscopic guidance into the region of the L5/S1 translaminar space. Depth was confirmed on lateral view. Radiological data, including multiple fluoroscopic views of the lumbar spine, reveal a spinal needle at the L5/S1 translaminar space. Lateral views then show placement of the needle in the epidural space. Subsequent views show contrast material flowing superiorly and inferiorly in the epidural space. No vascular or intrathecal uptake is observed. At this point, using loss of resistance technique with saline and air, the epidural space was entered. This was confirmed following negative aspiration with injection of approximately 1.5cc of Isovue 200, showing excellent epidural flow without vascular or intrathecal uptake. At this point, 1 cc of 1% lid ocaine solution combined with 3cc or 20mg of dexamethasone and 6mg of betamethasone was injected without incident. The patent tolerated the procedure without signs of symptoms of complications prior to transfer to the recovery area for further monitoring. The patient was then transferred to the recovery area where they were observed for an appropriate period of time after the injection. The patient reported a VAS score of 6 prior to the procedure and a post-procedure VAS of 0. POST OP INSTRUCTIONS The patient was provided a Pain Log to continue to record their response to the target-specific procedure prior to follow-up visit with their referring physician. Additionally, specific post-injection care instructions and a contact number to our office were provided if concerns arise regarding possible complications associated with the procedure are suspected.
== END 2022-01-19 11:54 | disposition home or self-care (01) ==
LOC: RAD 09:55
PROVIDERS: Family Provider Internal Medicine; PCP Student in an Organized Health Care Education/Training Program; Referring Provider Physical Medicine & Rehabilitation; Visit Provider Physical Medicine & Rehabilitation
DX: M51.17 Intervertebral disc disorders with radiculopathy, lumbosacral region (principal); M48.07 Spinal stenosis, lumbosacral region
CPT/HCPCS: 62323; J0702; J1100; J2250

== ENCOUNTER 2023-05-07 09:03 | Inpatient (IN) | payer MEDICARE, OTHER, SELFPAY ==
[2018-02-16 18:19] VITALS: BMI 24.6
[2023-05-07] VITALS (68 sets, daily range): BP systolic 89–117; BP diastolic 50–71; PULSE 85–117; RESP 16–35; TEMP 36.1–37.3; O2SAT 85–100; BMI 23.3; BMI 23.5
--- NOTE | 2023-05-07 09:06 | DI.RAD.S_ITS ---
PROCEDURE: XR CHEST 1V INDICATIONS: chest pain TECHNIQUE: One view of the chest was acquired. COMPARISON: [facility], , CHEST FOR PICC PLACEMENT, 07/22/2017, 15:35. FINDINGS: Surgical changes and devices: None. Lungs and pleura: Abnormal interstitial prominence can be seen throughout. No jelly focal infiltrates are detected. On this semiupright study, no pneumothorax is seen. Mild blunting of the costophrenic angles can be seen. Mediastinum: Mediastinal contours appear normal. Heart size is within normal limits. Bones and chest wall: No suspicious bony lesions. Age-appropriate bony degenerative changes are seen. Overlying soft tissues appear unremarkable. IMPRESSION: Generalized interstitial prominence and likely small pleural effusions. Fluid overload is suspected. However, no significant cardiomegaly is seen. Dictated by: Addy Almanza M.D. on 05/07/2023 at 8:28 Approved by: Addy Almanza M.D. on 05/07/2023 at 8:29
[2023-05-07 09:15] LABS: Add Manual Diff / Slide Review NO; Basophils Absolute Auto 100 /uL (0-100); Basophils Percent Auto 0.4 % (0-2); Eosinophils Absolute Auto 0 /uL (0-450); Eosinophils Percent Auto 0.1 % (2-4); Hematocrit 47.3 % (36-46); Lymphocytes Absolute Auto 2000 /uL (1100-4500); Lymphocytes Percent Auto 11.6 % (25-40); Mean Corpuscular HGB Conc 33.7 % (30-36); Mean Corpuscular Hemoglobin 30.4 PG (26-34); Mean Corpuscular Volume 90.1 fL (80-100); Monocytes Absolute Auto 600 /uL (0-900); Monocytes Percent Auto 3.7 % (3-14); Neutrophils Absolute Auto 14300 /uL (1500-7000); Neutrophils Percent Auto 84.2 % (50-75); Platelet Count 560 X10^3/uL (150-400); Red Blood Cell Count 5.25 X10^6/uL (4.0-5.2); Red Cell Distribution Width 13.8 % (11.6-14.8)
[2023-05-07 09:25] LABS: Alanine Aminotransferase 24 IU/L (<35); Albumin 4.5 g/dL (3.5-5.0); Albumin Globulin Ratio 1.1 (1.0-2.8); Alkaline Phosphatase 77 U/L (38-126); Aspartate Aminotransferase 60 IU/L (14-36); BUN Creatinine Ratio 21.8 (6-22); Bilirubin Total 0.7 mg/dL (0.2-1.3); Blood Urea Nitrogen 17 mg/dL (7-17); Calcium 9.5 mg/dL (8.4-10.2); Carbon Dioxide 18 mmol/L (22-32); Chloride 105 mmol/L (98-107); Creatine Kinase 411 U/L (30-135); Estimated Glomerular Filt Rate > 60 mL/min (>60); Globulin 4.2 g/dL (1.7-4.1); Glucose 168 mg/dL (80-110); HEMOLYSIS < 15 (0-50); Lipase 61 U/L (23-300); Magnesium 2.2 mg/dL (1.6-2.3); Sodium 137 mmol/L (137-145); Total Protein 8.7 g/dL (6.3-8.2)
[2023-05-07 09:28] LABS: Lactate (Lactic Acid) 4.1 mmol/L (0.7-2.1)
[2023-05-07 09:31] LABS: D Dimer 862 ng/ml (<500)
[2023-05-07 09:33] LABS: Prothrombin Time 11.4 SECONDS (10.1-12.7)
[2023-05-07 09:36] LABS: NT-proBNP (BNP-Adult 18+) 12800 pg/mL (<450)
--- NOTE | 2023-05-07 09:49 | ED.CHESTPAIN ---
HPI - Chest Pain General Chief Complaint: Chest Pain Stated Complaint: STEMI Time Seen by Provider: 05/07/23 09:05 Source: patient, family and EMS Mode of arrival: EMS Limitations: no limitations History of Present Illness HPI narrative: 77F nonsmoker is DNR/DNI and presents by EMS for evaluation of about 4 days' worth of chest pain and fatigue. She states that she has pressure and heaviness in her chest and feels it intensely in her right shoulder as well as her jaw. She feels short of breath and fatigued and has nausea but denies vomiting. It is unclear if there are any obvious provocation or palliation of her symptoms. She denies any history of the same. EMS was activated and promptly recognized that she had EKG changes consistent with STEMI. Patient very clearly stated to them that she does not want any type of intervention performed and only wants to be comfortable. I spoke with EMS to confirm this prior to their arrival and based on their response agreed with patient being transferred here. She had been given some nitro EN route that seems to maybe have taken the edge off of her symptoms. Related Data Home Medications Medication Instructions Recorded Confirmed acetaminophen 500 mg tablet 325 mg PO BEDTIME PRN pain ##0 10/03/17 12/30/21 (Tylenol Extra Strength) amlodipine 5 mg tablet 5 mg PO DAILY 12/30/21 12/30/21 aspirin 325 mg tablet 325 mg PO DAILY PRN pain 12/30/21 12/30/21 tramadol 50 mg tablet 50 mg PO .PRN 12/30/21 12/30/21 Allergies Allergy/AdvReac Type Severity Reaction Status Date / Time ampicillin [AMPICILLIN] Allergy Severe Anaphylaxis Verified 05/07/23 14:54 Penicillins [PENICILLINS] Allergy Severe Anaphylaxis Verified 05/07/23 14:54 pentazocine [From TALWIN] Allergy Severe Anaphylaxis Verified 05/07/23 14:54 phenobarbital [PHENOBARBITAL] Allergy Severe Anaphylaxis Verified 05/07/23 14:54 phenylbutazone Allergy Severe Rash Verified 05/07/23 14:54 [From Butazolidin] tetanus toxoid, adsorbed Allergy Unknown Verified 05/07/23 14:54 [TETANUS TOXOID, ADSORBED] Tetanus Vaccines and Toxoid Allergy Unknown (only to Verified 05/07/23 14:54 [TETANUS VACCINES & TOXOID] horse serium) sick in bed 3-4 days & severe pain diazepam [From VALIUM] AdvReac Severe severe Verified 05/07/23 14:54 depression naproxen [From NAPROSYN] AdvReac Severe I wasn't Verified 05/07/23 14:54 there ondansetron AdvReac Severe CONFUSION Verified 05/07/23 14:54 [From ZOFRAN ( AND HYDROCHLORIDE)] DISORIENTATION. propoxyphene [From DARVON] AdvReac Severe insomnia Verified 05/07/23 14:54 codeine [CODEINE] AdvReac Intermediate n/v Verified 05/07/23 14:54 erythromycin base AdvReac Intermediate n/v Verified 05/07/23 14:54 [ERYTHROMYCIN BASE] ibuprofen [From MOTRIN] AdvReac Intermediate elevates Verified 05/07/23 14:54 blood pressure Tetracyclines [TETRACYCLINES] AdvReac Intermediate n/v Verified 05/07/23 14:54 methenamine AdvReac Unknown Hard to Verified 05/07/23 14:54 [From MANDELAMINE] pass urine CHROMIC GUT SUTURES AdvReac Severe REJECT Uncoded 05/07/23 14:54 Review of Systems Review of Systems Narrative: GENERAL: Denies chills, fatigue, malaise, fever, sweats. HEENT: Denies sinus pain, ear pain, sore throat, difficulty swallowing, dizziness. RESPIRATORY: See HPI CARDIOVASCULAR: See HPI GASTROINTESTINAL: See HPI : Denies dysuria, frequency, incontinence, hematuria, urinary retention. MUSCULOSKELETAL: denies weakness, joint pain, or bony pain SKIN: Denies rash, skin lesions, or other NEUROLOGIC: Denies weakness, headache, numbness, change in speech, confusion, seizures, incoordination. PSYCHIATRIC: No concerning psychosocial issues. 12 point review of systems is negative except for those stated above Patient History Medical History Brain injury Chronic low back pain GERD (gastroesophageal reflux disease) Herniated nucleus pulposus, lumbar History of MRSA infection Hyperlipidemia Ileostomy present Keratosis Kidney stones Lumbosacral radiculopathy at L5 Osteoarthritis Pneumonia Sciatica Seasonal allergies Spinal stenosis Surgical History History of bilateral tubal ligation History of hysterectomy History of meniscectomy of left knee History of tracheostomy Hx of appendectomy Hx of tonsillectomy Family History Unknown No pertinent family history Social History household members: spouse Smoking Status: Never smoker alcohol intake: current Smoking Status: Never smoker alcohol intake frequency: 0-2 drinks per day Substance Use Type: does not use Exam Narrative Exam Narrative: GENERAL: [88] year old patient appears stated age. Well-developed patient, in mild distress. HEAD: Atraumatic. Normocephalic. EYES: Pupils equal round and reactive. Extraocular motions intact. No scleral icterus. No injection or drainage. ENT: Nose without bleeding, purulent drainage. Throat without erythema, tonsillar hypertrophy or exudate. Airway patent. NECK: Trachea midline. Non tender CARDIOVASCULAR: Tachycardic but regular rhythm without murmurs, gallops, or rubs. RESPIRATORY: Increased work of breathing, on non-rebreather, crackles in bilateral bases GASTROINTESTINAL: Abdomen soft, non-tender, nondistended. EXTREMITIES: No edema or joint tenderness. BACK: Nontender without deformity or crepitance. No flank tenderness. NEURO: AOx3. SKIN: No rash or erythema of visible areas Initial Vital Signs Initial Vital Signs: Vital Signs Pulse Rate 115 H 05/07/23 09:10 Pulse Oximetry 86 L 05/07/23 09:10 Oxygen Delivery Method Non -Rebreather 05/07/23 09:10 Oxygen Flow Rate 15 05/07/23 09:10 Course Orders Ordered: ED Orders 05/07/23 22:08 PTT Partial Thromboplastin César Q6H 05/08/23 04:23 PTT Partial Thromboplastin César Q6H Acetaminophen (Acetaminophen 325 Mg Tablet) 650 mg PO Q6H PRN PRN Reason: Fever/Mild Pain (1-3) Aspirin (Aspirin Ec 81 Mg Tablet) 81 mg PO DAILY [facility] Atorvastatin Calcium (Atorvastatin 20 Mg Tablet) 80 mg PO BEDTIME FAN Last Admin: 05/07/23 20:58 Dose: 80 mg Documented By: Clopidogrel Bisulfate (Clopidogrel 75 Mg Tablet) 75 mg PO DAILY FAN Stop: 05/28/23 08:59 Furosemide (Furosemide 40 Mg/4 Ml Vial) 40 mg IV 1600,0800 [facility] Last Admin: 05/07/23 15:32 Dose: 40 mg Documented By: HAKAN Heparin Sodium/Dextrose (Heparin Drip) 25,000 unit in 500 mls @ 15.264 mls/hr IV CONT FAN; Protocol Last Titration: 05/07/23 17:11 Dose: 10.38 units/kg/hr, 13.2 mls/hr Documented By: HAKAN Co-signed By: DANN Titration: 05/07/23 16:41 Dose: 0 units/kg/hr, 0 mls/hr Documented By: HAKAN Co-signed By: DANN Admin: 05/07/23 10:28 Dose: 12 units/kg/hr, 15.264 mls/hr Documented By: ABDELRAHMAN Co-signed By: MATTHEW Levofloxacin (Levofloxacin 250 Mg Tablet) 750 mg PO Q48H FAN Last Admin: 05/07/23 15:32 Dose: 750 mg Documented By: HAKAN Melatonin (Melatonin 3 Mg Tablet) 6 mg PO BEDTIME PRN PRN Reason: Insomnia Metoclopramide HCl (Metoclopramide 10 Mg/2 Ml Inj) 10 mg IV Q6HR PRN PRN Reason: nausea or vomiting Last Admin: 05/08/23 04:22 Dose: 10 mg Documented By: Admin: 05/07/23 17:32 Dose: 10 mg Documented By: DANN Morphine Sulfate (Morphine 2 Mg/Ml Inj) 2 mg IV Q2H PRN PRN Reason: Pain and Dyspnea Last Admin: 05/08/23 04:22 Dose: 2 mg Documented By: Naloxone HCl (Naloxone 0.4 Mg/Ml Vial) 0.2 mg IV Q2MIN PRN PRN Reason: Opiate Reversal Nitroglycerin (Nitroglycerin 0.4 Mg Sl Tab) 0.4 mg SL [id number] PRN PRN Reason: Chest Pain Last Admin: 05/07/23 11:07 Dose: 0.4 mg Documented By: Admin: 05/07/23 09:57 Dose: 0.4 mg Documented By: MPO Oxycodone HCl (Oxycodone Ir 10 Mg Tablet) 5 mg PO Q3HR PRN PRN Reason: Pain, Moderate (4-6) Polyethylene Glycol (Polyethylene Glycol 3350 17 Gm Powd.Pack) 17 gm PO DAILY PRN PRN Reason: Constipation Sennosides (Sennosides 8.6 Mg Tablet) 8.6 mg PO BID PRN PRN Reason: Constipation Discontinued Medications Aspirin (Aspirin Ec 325 Mg Tablet) 325 mg PO NOW ONE Stop: 05/07/23 13:55 Last Admin: 05/07/23 15:37 Dose: 325 mg Documented By: HAKAN Clopidogrel Bisulfate (Clopidogrel 75 Mg Tablet) 300 mg PO NOW ONE Stop: 05/07/23 13:56 Last Admin: 05/07/23 15:32 Dose: 300 mg Documented By: HAKAN Furosemide (Furosemide 40 Mg/4 Ml Vial) 40 mg IV NOW ONE Stop: 05/07/23 10:14 Last Admin: 05/07/23 10:40 Dose: 40 mg Documented By: ABDELRAHMAN Heparin Sodium (Porcine) (Heparin 5,000 Unit/Ml Vial) 4,000 unit IV NOW ONE Stop: 05/07/23 09:56 Last Admin: 05/07/23 10:27 Dose: 4,000 unit Documented By: ABDELRAHMAN Hydromorphone HCl (Hydromorphone 0.5 Mg Inj) 0.5 mg IV Q2H PRN PRN Reason: Pain, Severe (7-10) Vital Signs Vital signs: Vital Signs - 8 hr 05/07/23 09:19 Temperature 97.6 F Pulse Rate 112 H Blood Pressure 108/66 Pulse Oximetry 85 L Oxygen Delivery Method Non -Rebreather Oxygen Flow Rate 15 MDM - Chest Pain Lab Data 05/08/23 04:23 05/08/23 04:23 Labs: Lab Results 05/07/23 05/07/23 05/07/23 Range/Units 09:00 09:00 09:00 WBC 17.0 H (4.5-11.0) X10^3/uL RBC 5.25 H (4.0-5.2) X10^6/uL Hgb 16.0 (12.0-16.0) g/dL Hct 47.3 H (36-46) % MCV 90.1 (80-100) fL MCH 30.4 (26-34) PG MCHC 33.7 (30-36) % RDW 13.8 (11.6-14.8) % Plt Count 560 H (150-400) X10^3/uL Neut % (Auto) 84.2 H (50-75) % Lymph % (Auto) 11.6 L (25-40) % Saunders % (Auto) 3.7 (3-14) % Eos % (Auto) 0.1 L (2-4) % Baso % (Auto) 0.4 (0-2) % Neut # (Auto) 93083 H (1426-0665) /uL Lymph # (Auto) 2000 (4169-7152) /uL Saunders # (Auto) 600 (0-900) /uL Eos # (Auto) 0 (0-450) /uL Baso # (Auto) 100 (0-100) /uL PT 11.4 (10.1-12.7) SECONDS INR 1.0 (0.9-1.3) APTT (26-36) SECONDS D-Dimer 862 H (<500) ng/ml Sodium (137-145) mmol/L Potassium (3.4-5.1) mmol/L Chloride (98-107) mmol/L Carbon Dioxide (22-32) mmol/L BUN (7-17) mg/dL Creatinine (0.52-1.04) mg/dL Estimated GFR (>60) mL/min BUN/Creatinine Ratio (6-22) Glucose (80-110) mg/dL Lactate (0.7-2.1) mmol/L Calcium (8.4-10.2) mg/dL Magnesium (1.6-2.3) mg/dL Total Bilirubin (0.2-1.3) mg/dL AST (14-36) IU/L ALT (<35) IU/L Alkaline Phosphatase (38-126) U/L Total Creatine Kinase (30-135) U/L Troponin I (0.01-0.034) ng/mL NT-Pro-B Natriuret Pep (<450) pg/mL Total Protein (6.3-8.2) g/dL Albumin (3.5-5.0) g/dL Globulin (1.7-4.1) g/dL Albumin/Globulin Ratio (1.0-2.8) Lipase (23-300) U/L Procalcitonin (<0.5) ng/mL TSH (0.47-4.68) uIU/mL Urine RBC (0-5/HPF) Urine WBC (0-5/HPF) Ur Squamous Epith Cells (0-5/HPF) Urine Bacteria (None) Ur Culture Indicated? 05/07/23 05/07/23 05/07/23 Range/Units 09:00 09:00 09:00 WBC (4.5-11.0) X10^3/uL RBC (4.0-5.2) X10^6/uL Hgb (12.0-16.0) g/dL Hct (36-46) % MCV (80-100) fL MCH (26-34) PG MCHC (30-36) % RDW (11.6-14.8) % Plt Count (150-400) X10^3/uL Neut % (Auto) (50-75) % Lymph % (Auto) (25-40) % Saunders % (Auto) (3-14) % Eos % (Auto) (2-4) % Baso % (Auto) (0-2) % Neut # (Auto) (9067-6692) /uL Lymph # (Auto) (8592-0095) /uL Saunders # (Auto) (0-900) /uL Eos # (Auto) (0-450) /uL Baso # (Auto) (0-100) /uL PT (10.1-12.7) SECONDS INR (0.9-1.3) APTT 33 (26-36) SECONDS D-Dimer (<500) ng/ml Sodium 137 (137-145) mmol/L Potassium 4.0 (3.4-5.1) mmol/L Chloride 105 (98-107) mmol/L Carbon Dioxide 18 L (22-32) mmol/L BUN 17 (7-17) mg/dL Creatinine 0.78 (0.52-1.04) mg/dL Estimated GFR > 60 (>60) mL/min BUN/Creatinine Ratio 21.8 (6-22) Glucose 168 H (80-110) mg/dL Lactate 4.1 H* (0.7-2.1) mmol/L Calcium 9.5 (8.4-10.2) mg/dL Magnesium 2.2 (1.6-2.3) mg/dL Total Bilirubin 0.7 (0.2-1.3) mg/dL AST 60 H (14-36) IU/L ALT 24 (<35) IU/L Alkaline Phosphatase 77 (38-126) U/L Total Creatine Kinase 411 H (30-135) U/L Troponin I 3.420 H* (0.01-0.034) ng/mL NT-Pro-B Natriuret Pep 91441 H (<450) pg/mL Total Protein 8.7 H (6.3-8.2) g/dL Albumin 4.5 (3.5-5.0) g/dL Globulin 4.2 H (1.7-4.1) g/dL Albumin/Globulin Ratio 1.1 (1.0-2.8) Lipase 61 (23-300) U/L Procalcitonin (<0.5) ng/mL TSH (0.47-4.68) uIU/mL Urine RBC (0-5/HPF) Urine WBC (0-5/HPF) Ur Squamous Epith Cells (0-5/HPF) Urine Bacteria (None) Ur Culture Indicated? 05/07/23 05/07/23 05/07/23 Range/Units 09:00 09:00 11:40 WBC (4.5-11.0) X10^3/uL RBC (4.0-5.2) X10^6/uL Hgb (12.0-16.0) g/dL Hct (36-46) % MCV (80-100) fL MCH (26-34) PG MCHC (30-36) % RDW (11.6-14.8) % Plt Count (150-400) X10^3/uL Neut % (Auto) (50-75) % Lymph % (Auto) (25-40) % Saunders % (Auto) (3-14) % Eos % (Auto) (2-4) % Baso % (Auto) (0-2) % Neut # (Auto) (0937-8308) /uL Lymph # (Auto) (5515-6298) /uL Saunders # (Auto) (0-900) /uL Eos # (Auto) (0-450) /uL Baso # (Auto) (0-100) /uL PT (10.1-12.7) SECONDS INR (0.9-1.3) APTT (26-36) SECONDS D-Dimer (<500) ng/ml Sodium (137-145) mmol/L Potassium (3.4-5.1) mmol/L Chloride (98-107) mmol/L Carbon Dioxide (22-32) mmol/L BUN (7-17) mg/dL Creatinine (0.52-1.04) mg/dL Estimated GFR (>60) mL/min BUN/Creatinine Ratio (6-22) Glucose (80-110) mg/dL Lactate (0.7-2.1) mmol/L Calcium (8.4-10.2) mg/dL Magnesium (1.6-2.3) mg/dL Total Bilirubin (0.2-1.3) mg/dL AST (14-36) IU/L ALT (<35) IU/L Alkaline Phosphatase (38-126) U/L Total Creatine Kinase (30-135) U/L Troponin I (0.01-0.034) ng/mL NT-Pro-B Natriuret Pep (<450) pg/mL Total Protein (6.3-8.2) g/dL Albumin (3.5-5.0) g/dL Globulin (1.7-4.1) g/dL Albumin/Globulin Ratio (1.0-2.8) Lipase (23-300) U/L Procalcitonin 0.04 (<0.5) ng/mL TSH 1.17 (0.47-4.68) uIU/mL Urine RBC None seen (0-5/HPF) Urine WBC 5-10/hpf H (0-5/HPF) Ur Squamous Epith Cells 1-5 /hpf (0-5/HPF) Urine Bacteria Many (>30) H (None) Ur Culture Indicated? Specimen cultured 05/07/23 Range/Units 11:45 WBC (4.5-11.0) X10^3/uL RBC (4.0-5.2) X10^6/uL Hgb (12.0-16.0) g/dL Hct (36-46) % MCV (80-100) fL MCH (26-34) PG MCHC (30-36) % RDW (11.6-14.8) % Plt Count (150-400) X10^3/uL Neut % (Auto) (50-75) % Lymph % (Auto) (25-40) % Saunders % (Auto) (3-14) % Eos % (Auto) (2-4) % Baso % (Auto) (0-2) % Neut # (Auto) (8802-3303) /uL Lymph # (Auto) (4058-9836) /uL Saunders # (Auto) (0-900) /uL Eos # (Auto) (0-450) /uL Baso # (Auto) (0-100) /uL PT (10.1-12.7) SECONDS INR (0.9-1.3) APTT (26-36) SECONDS D-Dimer (<500) ng/ml Sodium (137-145) mmol/L Potassium (3.4-5.1) mmol/L Chloride (98-107) mmol/L Carbon Dioxide (22-32) mmol/L BUN (7-17) mg/dL Creatinine (0.52-1.04) mg/dL Estimated GFR (>60) mL/min BUN/Creatinine Ratio (6-22) Glucose (80-110) mg/dL Lactate 6.1 H* (0.7-2.1) mmol/L Calcium (8.4-10.2) mg/dL Magnesium (1.6-2.3) mg/dL Total Bilirubin (0.2-1.3) mg/dL AST (14-36) IU/L ALT (<35) IU/L Alkaline Phosphatase (38-126) U/L Total Creatine Kinase (30-135) U/L Troponin I (0.01-0.034) ng/mL NT-Pro-B Natriuret Pep (<450) pg/mL Total Protein (6.3-8.2) g/dL Albumin (3.5-5.0) g/dL Globulin (1.7-4.1) g/dL Albumin/Globulin Ratio (1.0-2.8) Lipase (23-300) U/L Procalcitonin (<0.5) ng/mL TSH (0.47-4.68) uIU/mL Urine RBC (0-5/HPF) Urine WBC (0-5/HPF) Ur Squamous Epith Cells (0-5/HPF) Urine Bacteria (None) Ur Culture Indicated? Urine Dip Bedside Urine Glucose Negative Bedside Urine Bilirubin - Negative Bedside Urine Ketone - Negative Urine Specific [place]rop 1.015 Bedside Urine Occult Blood - Negative Bedside Urine pH 6.0 Bedside Urine Protein - Negative Bedside Urine Urobilinogen - Negative Bedside Urine Nitrite - Negative Bedside Urine Leukocytes + 70 Esterase ECG Data Interpretation: [0918] EKG is normal sinus rhythm rate [107 ] ST segmental elevation most noted in inferior leads with possible reciprocal change in the lateral leads. Findings consistent with STEMI MDM Narrative Medical decision making narrative: 77-year-old female DNR, DNI with 4 days of worsening chest pain with radiation to shoulder and jaw is found to be in respiratory distress with EKG demonstrating STEMI by EMS. The patient is able to demonstrate capacity to make her own decisions and is very clear with EMS and also myself on multiple occasions that she has no interest in being transferred to a Cardiac Center and refuses to entertain the concept of a heart catheterization or other intervention. She understands that she very well could not survive this myocardial infarction and is comfortable with that decision. She is agreeable to maximal medical treatment with supplemental oxygen, possible noninvasive positive pressure ventilation, heparin, diuretics etc.. Discharge Plan Departure Patient Disposition: Admitted As Inpatient Clinical Impression: ST elevation (STEMI) myocardial infarction Admit Date/Time: 05/07/23 12:37 Admit Provider: Nabil Coreas
[2023-05-07] MEDS: NITROGLYCERIN 0.4 MG SL TAB SL ×2 (09:57→11:07)
--- NOTE | 2023-05-07 10:13 | DI.CT.S_ITS ---
PROCEDURE: CT ANGIO CHEST PE PROTOCOL INDICATIONS: CP, short of breath, hypoxia, critical Dimer TECHNIQUE: After the administration of intravenous contrast, 2 mm thick sections acquired from the pulmonary apices to the posterior costophrenic angles. 3-dimensional maximum intensity projection (MIP) coronal and sagittal reformats were then acquired through the thorax. For radiation dose reduction, the following was used: automated exposure control, adjustment of mA and/or kV according to patient size. COMPARISON: [facility], CT, CHEST/ABD/PEL WITHOUT CONTRAST, 07/21/2017, 8:59. [facility], CR, XR CHEST 1V, 05/07/2023, 9:05. FINDINGS: Image quality: Excellent. Pulmonary arteries: Pulmonary arteries are normal in size, and demonstrate no intraluminal filling defects to suggest central pulmonary embolism. Lungs and pleura: Abnormal poorly defined opacities can be seen throughout. Dependently layering ground-glass opacity can be seen. Small bilateral pleural effusions are seen, right larger than left. No pneumothorax is seen. Mediastinum: Heart size is normal, without pericardial effusion. No mediastinal or hilar adenopathy. Thoracic aorta is normal in caliber and enhancement. 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 This is considered to be a developmental variant of no clinical consequence. Esophagus is normal in caliber, without hiatal hernia. Bones and chest wall: No suspicious bony lesions. Ribs and thoracic spine appear intact throughout. Age-appropriate bony degenerative changes are seen. Thyroid gland demonstrates no significant abnormality. No axillary or supraclavicular adenopathy. Abdomen: Numerous gallstones are seen. No additional CT findings of cholecystitis are seen. There is a water density right renal cyst seen measuring 3 cm. The visualized portions of the upper abdominal structures are otherwise unremarkable for imaging technique. IMPRESSION: Bilateral infiltrates are seen, which are overall compatible with fluid overload. Infection is possible, yet considered to be less likely. Small bilateral pleural effusions are seen, right larger than left. Negative for pulmonary embolism. Additional findings: Bovine type aortic branching pattern Gallstones Simple right renal cyst Dictated by: Addy Almanza M.D. on 05/07/2023 at 10:25 Approved by: Addy Almanza M.D. on 05/07/2023 at 10:29
[2023-05-07] MEDS: HEPARIN 5,000 UNIT/ML VIAL 4000 UNIT IV (10:27)
[2023-05-07] MEDS: HEPARIN DRIP 25,000 UNIT/500 ML IV.SOLN 15.264 UNIT IV (10:28)
[2023-05-07] MEDS: FUROSEMIDE 40 MG/4 ML VIAL IV ×2 (10:40→15:32)
--- NOTE | 2023-05-07 11:10 | PC.NURSE ---
0957 pt states that she is having chest pain that radiates to her jaw and she is SOB. pt is difficult to arouse, but responsive to name and touch. Pt remains on 15L non-rebreather and 02 sat at 89%. Dr Gross notified.
[2023-05-07 11:11] LABS: Reflexed Lactate in 2 Hours Y
--- NOTE | 2023-05-07 11:12 | PC.NURSE ---
pt on 15L non-rebreather and cafeteria monitor during CT
[2023-05-07 12:07] LABS: PTT Partial Thromboplastin Tim 33 SECONDS (26-36)
[2023-05-07 12:23] LABS: Lactate 2HR (Lactic Acid Rflx) 6.1 mmol/L (0.7-2.1)
[2023-05-07 12:31] LABS: Bacteria Urine Many (>30); RBC Urine None Seen (0-5/HPF); WBC Urine 5-10/HPF (0-5/HPF)
[2023-05-07 12:32] LABS: Culture Indicated Urine Specimen Cultured; Squamous Epithelial Cell Urine 1-5 /HPF (0-5/HPF)
--- NOTE | 2023-05-07 13:49 | DI.ECHO.S_ITS ---
[facility] +---------+ : : [address] : : : : [id number] : : : : Phone: [phone] Echocardiogram Report + + :Name: ERICK WAITE Study Date: 05/08/2023 Height: 65 in : :[facility] ReadingLocation: Weight: 140 lb : : Gender: Female BSA: 1.7 m2 : :: 1945 Age: 77 yrs BP: 109/64 mmHg: :Reason For Study: STEMI : :Ordering Physician: BRUNO, : :CONCHITA Mills Performed By: Lorena Ayala : :Referring: CONCHITA CARR : + + Interpretation Summary The ejection fraction is estimated to be 20-25%. Segmental wall motion abnormalities in multiple vascular territories that seem consistent with an atypical stress cardiomyopathy. Grade II diastolic dysfunction. The right ventricle is normal in size and function. There is moderate mitral regurgitation. There is mild aortic regurgitation. There is moderate tricuspid regurgitation. The right ventricular systolic pressure is estimated to be at least 44 mmHg based on an estimated right atrial pressure of 3 mm Hg. Compared to the prior study dated 08/15/2021, the ejection fraction has decreased and the segmental wall motion abnormalities are new. In addition, there is now moderate mitral and tricuspid regurgitation. Procedure: A two-dimensional transthoracic echocardiogram with color flow and Doppler was performed. The study quality was technically adequate. Comparison is made with the echocardiogram of 08/15/2021. The patient was in sinus tachycardia with heart rates between 95-112 bpm during the exam. Left Ventricle: The left ventricle is normal in size and wall thickness. The ejection fraction is estimated to be 20-25%. The mid to distal ortega of most segments and apex are severely hypo to akinetic. There is some preserved contractility in the midportion of the septum. There is also severe hyper to akinesis of the basal segments of the inferior and lateral ortega. Right Ventricle: The right ventricle is normal in size and function. Atria: The left atrial size is normal. Right atrial size is normal. There is no Doppler evidence for an interatrial shunt. Mitral Valve: The mitral valve leaflets appear mildly thickened, but open well. There is moderate mitral regurgitation. Aortic Valve: The aortic valve is mildly calcified. The aortic valve is trileaflet. There is no aortic valve stenosis. There is mild aortic regurgitation. Tricuspid Valve: The tricuspid valve leaflets are thin and pliable. There is moderate tricuspid regurgitation. The right ventricular systolic pressure is estimated to be at least 44 mmHg based on an estimated right atrial pressure of 3 mm Hg. Pulmonic Valve: The pulmonic valve leaflets are thin and pliable; valve motion is normal. There is no pulmonic valvular regurgitation. Great Vessels: The aortic root is normal size. The dimensions of the ascending aorta are normal. The IVC is of normal diameter and collapses greater than 50% with a sniff. This suggests a low right atrial pressure of 3 mm Hg. Pericardium/ Pleura There is no pericardial effusion. There is no pleural effusion. MMode/2D Measurements & Calculations LVIDd: 4.9 cm LVOT diam: 1.8 cm LVIDs: 4.0 cm Ao root diam: 2.8 cm FS: 18.5 % asc Aorta Diam: 3.4 cm IVSd: 0.92 cm Ao Arch Diam (Prox Trans): 2.4 cm LVPWd: 0.94 cm LV garber. diameter/BSA (cm/m^2): 2.9 LV sys. diameter/BSA (cm/m^2): 2.3 LA A2 area: 14.5 cm2 RA long axis: 4.1 cm LA A4 area: 10.8 cm2 RA area: 9.8 cm2 LA length (vol): 3.9 cm RA vol: 19.8 ml LA vol: 34.5 ml RA : 11.6 ml/m2 LA vol index: 20.3 ml/m2 IVC diam: 1.5 cm RVD1 (basal): 2.6 cm RVD2 (mid): 2.0 cm TAPSE: 1.6 cm Doppler Measurements & Calculations Ao V2 max: 93.9 cm/sec LVOT Max Faheem: 71.6 cm/sec Ao V2 mean: 70.5 cm/sec LV V1 max P.1 mmHg Ao max P.5 mmHg LV V1 VTI: 12.0 cm Ao mean P.1 mmHg MIGEL(I,D): 2.1 cm2 Ao V2 VTI: 13.9 cm MIGEL(V,D): 1.8 cm2 sev ratio: 0.87 MIGEL indexed to BSA (cm^2/m^2): 1.2 AI P1/2t: 312.7 msec AI dec slope: 329.4 cm/sec2 MV E max faheem: 104.9 cm/sec TR max faheem: 318.8 cm/sec MV A max faheem: 82.5 cm/sec TR max P.7 mmHg MV E/A: 1.3 PA V2 max: 93.8 cm/sec Med Peak E' Faheem: 5.4 cm/sec PA V2 mean: 64.7 cm/sec E/E' med: 19.3 PA mean P.9 mmHg Lat Peak E' Faheem: 6.4 cm/sec PA pr(Accel): 40.5 mmHg E/E' lat: 16.4 E/e' average: 17.9 MV dec time: 0.15 sec SV(LVOT): 29.0 ml Reading Physician:12:15 PM
[2023-05-07 14:31] LABS: Procalcitonin 0.04 ng/mL (<0.5)
[2023-05-07 14:49] LABS: TSH w/ Reflex to FT4 1.17 uIU/mL (0.47-4.68)
[2023-05-07] MEDS: levoFLOXacin 250 MG TABLET 750 MG PO (15:32)
[2023-05-07] MEDS: CLOPIDOGREL 75 MG TABLET 300 MG PO (15:32)
[2023-05-07] MEDS: ASPIRIN EC 325 MG TABLET PO (15:37)
[2023-05-07 17:02] LABS: PTT Partial Thromboplastin Tim 85 SECONDS (26-36)
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
[2023-05-07 17:18] LABS: MRSA (Nasal) PCR Not Detected (Not Detect)
[2023-05-07] MEDS: METOCLOPRAMIDE 10 MG/2 ML INJ IV (17:32)
[2023-05-07] MEDS: ATORVASTATIN 20 MG TABLET 80 MG PO (20:58)
[2023-05-07 22:28] LABS: PTT Partial Thromboplastin Tim 54 SECONDS (26-36)
[2023-05-08] VITALS (87 sets, daily range): BP systolic 86–132; BP diastolic 48–71; PULSE 80–116; RESP 16–39; TEMP 36.2–36.7; O2SAT 83–98
[2023-05-08] MEDS: METOCLOPRAMIDE 10 MG/2 ML INJ IV ×2 (04:22→21:50)
[2023-05-08] MEDS: MORPHINE 2 MG/ML INJ IV ×3 (04:22→18:28)
[2023-05-08 04:50] LABS: Add Manual Diff / Slide Review NO; Basophils Absolute Auto 100 /uL (0-100); Basophils Percent Auto 0.4 % (0-2); Eosinophils Absolute Auto 0 /uL (0-450); Eosinophils Percent Auto 0.1 % (2-4); Hematocrit 39.4 % (36-46); Hemoglobin 13.4 g/dL (12.0-16.0); Lymphocytes Absolute Auto 2200 /uL (1100-4500); Lymphocytes Percent Auto 12.7 % (25-40); Mean Corpuscular HGB Conc 33.9 % (30-36); Mean Corpuscular Hemoglobin 30.3 PG (26-34); Mean Corpuscular Volume 89.4 fL (80-100); Monocytes Absolute Auto 1800 /uL (0-900); Monocytes Percent Auto 10.4 % (3-14); Neutrophils Absolute Auto 13300 /uL (1500-7000); Neutrophils Percent Auto 76.4 % (50-75); Platelet Count 434 X10^3/uL (150-400); Red Cell Distribution Width 13.7 % (11.6-14.8); White Blood Cell Count 17.4 X10^3/uL (4.5-11.0)
[2023-05-08 04:51] LABS: PTT Partial Thromboplastin Tim 48 SECONDS (26-36)
[2023-05-08 04:54] LABS: BUN Creatinine Ratio 27.8 (6-22); Blood Urea Nitrogen 25 mg/dL (7-17); Calcium 8.6 mg/dL (8.4-10.2); Carbon Dioxide 21 mmol/L (22-32); Chloride 105 mmol/L (98-107); Estimated Glomerular Filt Rate > 60 mL/min (>60); Glucose 118 mg/dL (80-110); HEMOLYSIS < 15 (0-50); Potassium 3.6 mmol/L (3.4-5.1); Sodium 135 mmol/L (137-145)
[2023-05-08] MEDS: ASPIRIN EC 81 MG TABLET PO (08:33)
[2023-05-08] MEDS: CLOPIDOGREL 75 MG TABLET PO (08:33)
[2023-05-08] MEDS: FUROSEMIDE 40 MG/4 ML VIAL IV ×3 (08:33→21:50)
[2023-05-08 10:53] LABS: PTT Partial Thromboplastin Tim 46 SECONDS (26-36)
[2023-05-08] MEDS: MORPHINE 10 MG/0.5 ML ORAL SYRINGE PO ×2 (12:39→21:50)
--- NOTE | 2023-05-08 14:00 | CM.DANOTE ---
Addendum entered by LEO Nayak 05/08/23 16:06: Spouse Jorge L called to discuss hospice plan. Jorge L had questions regarding the bed/equipment/how soon hospice could open. SLATE ROOFER HELPER answered questions to the best of ability. 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 SLATE ROOFER HELPER referred spouse to [facility]ospice [facility] to answer more specifically the time of care they are able to offer. SLATE ROOFER HELPER agreed to give spouse senior resources booklet/[facility] booklet to patient for spouse to look at. Spouse expressed verbal understanding that they may receive a bill for BLS transport. Spouse in agreement that with patient's current O2 needs, BLS is likely safest. Jorge L reported working on getting the house ready for hospice equipment and would meet with this SLATE ROOFER HELPER tomorrow to discuss the plan further. SLATE ROOFER HELPER placed senior resources booklet and hosp[facility] of the pamphlet on patient table. Patient was sleeping soundly. SL Original Note: DCP Assessment Note: Patient is a 77yo female here following STEMI. PCP Sadaf Sandy Payer Medicare and [facility] SLATE ROOFER HELPER reviewed EMR. Per provider, patient would like to stop treatment and d/c home with hospice. Patient reports a potential barrier to home would be weening patient off of oxygen; she is currently at 15ltrs. SLATE ROOFER HELPER entered room and introduced self and role. Patient was resting in bed and appeared A/Ox4. Patient would frequently become short of breath. Patient appeared to be hard of hearing. Patient lives in [place] with her Jorge L ([phone]). Patient prefers [facility] . Patient reported she would need a hospital bed, commode, and oxygen equipment. Patient reports verbal understanding that she made receive a bill for BLS transport home, but agrees that is likely the safest way for her to transport home. Patient reports one or two steps into the home. Patient reports she was independent prior to this event. SLATE ROOFER HELPER called spouse Jorge L. Jorge L requested either he call back or meet with SLATE ROOFER HELPER tomorrow. SLATE ROOFER HELPER agreed. SLATE ROOFER HELPER called [facility] and spoke with Tracy. Tracy reported she will take a look at the referral. Tracy reports they cannot accept patient's over 15ltrs of O2. SLATE ROOFER HELPER answered demographic and other additional questions at this time. Tracy was unsure the earliest they could open/deliver equipment. SLATE ROOFER HELPER faxed H&P, updated clinicals, POLST, ER doc, and chest x-ray to [facility] . Plan: Home with [facility] and spouse, pending hospice acceptance of referral. Likely transport via BLS. CM team will continue to follow closely. LEO Nayak Discharge Planning/Care Management CM Discharge Assessment Start: 05/08/23 13:56 Freq: Status: Active Protocol: Document 05/08/23 13:56 (Rec: 05/08/23 13:59 [id number]) Discharge Planning Assessment Assigned Women'S Soccer Coach LEO Gaytan DPOA/Assigned Designee Name Jorge L Newman (spouse) Contact Information [phone] Advance Directives? Yes: Dpoa for Health Care/ Polst Advance Directives on File Yes History Provided By Patient,Medical Record Prior Living Arrangements House Household Members spouse Independent with ADL's No Is patient alert and oriented? Yes Needs Assistance With Bathing,Meal Prep,Managing Medications,Home Chores / Shopping Comment Prior to event, patient appears to have been independent. Now, requires assistance with more ADLs. Comment Home with hospice of the Barriers to Discharge Yes Discharge Plan Hospice Transportation Arrangement Likely BLS home due to oxygen management needs. Additional Comment Patient is expecting to discharge home with supportive spouse and hospice of the Whiteboard Updated in Patient Room with Yes name and ext. # of Women'S Soccer Coach Review Status In Process Next Review Type Continued Stay Review
--- NOTE | 2023-05-08 18:16 | PM.PN.1 ---
Subjective Subjective Interval history: Patient still on 15L NC. at bedside and a 40 min discussion was held about patient's goals of care. We discussed hospice being the likely best option for patient to return home and be comfortable. Patient and both agreed that was within their wishes. POLST updated to reflect comfort measures. Hospice being arranged with BOX BLANK MACHINE OPERATOR. Exam Vital Signs (past 8 hours): - 05/08/23 10:30 05/08/23 10:30 05/08/23 10:45 Temperature Pulse Rate 96 H 97 H Respiratory Rate 24 26 H Blood Pressure 106/61 Pulse Oximetry 96 96 05/08/23 11:00 05/08/23 11:00 05/08/23 11:15 Temperature Pulse Rate 96 H 97 H Respiratory Rate 26 H 24 Blood Pressure 108/59 L Pulse Oximetry 96 96 05/08/23 11:30 05/08/23 11:30 05/08/23 11:45 Temperature Pulse Rate 102 H 104 H Respiratory Rate 25 H 26 H Blood Pressure 110/66 Pulse Oximetry 96 94 05/08/23 12:00 05/08/23 12:00 05/08/23 12:15 Temperature Pulse Rate 103 H 105 H Respiratory Rate 29 H 37 H Blood Pressure 103/58 L Pulse Oximetry 95 95 05/08/23 12:30 05/08/23 12:30 05/08/23 12:45 Temperature Pulse Rate 102 H 103 H Respiratory Rate 26 H 26 H Blood Pressure 98/61 Pulse Oximetry 94 96 05/08/23 13:00 05/08/23 13:00 Temperature 97.8 F Pulse Rate 106 H Respiratory Rate 28 H Blood Pressure 105/66 Pulse Oximetry 92 Oxygen Delivery Method High Flow Nasal Cannula Oxygen Flow Rate 12 Narrative Exam Narrative: GEN: no acute distress, frail elderly woman HEENT: moist mucous membranes, PERRL NECK: trachea midline, no JVD CV: tachycardic, regular rhythm, no murmurs PULM: crackles bilaterally ABD: soft, nontender, nondistended, no organomegaly EXT: warm and well perfused with no edema NEURO: awake, alert, oriented, no focal deficits Objective Labs 05/08/23 04:23 05/08/23 04:23 Labs: Laboratory Results - last 24 hr 05/07/23 05/07/23 05/08/23 22:08 22:08 04:23 WBC RBC Hgb Hct MCV MCH MCHC RDW Plt Count Neut % (Auto) Lymph % (Auto) [place] % (Auto) Eos % (Auto) Baso % (Auto) Neut # (Auto) Lymph # (Auto) [place] # (Auto) Eos # (Auto) Baso # (Auto) APTT 54 H D 48 H Sodium Potassium Chloride Carbon Dioxide BUN Creatinine Estimated GFR BUN/Creatinine Ratio Glucose Calcium Troponin I 10.600 H* 05/08/23 05/08/23 05/08/23 04:23 04:23 04:23 WBC 17.4 H RBC 4.40 Hgb 13.4 Hct 39.4 MCV 89.4 MCH 30.3 MCHC 33.9 RDW 13.7 Plt Count 434 H Neut % (Auto) 76.4 H Lymph % (Auto) 12.7 L [place] % (Auto) 10.4 Eos % (Auto) 0.1 L Baso % (Auto) 0.4 Neut # (Auto) 65955 H Lymph # (Auto) 2200 [place] # (Auto) 1800 H Eos # (Auto) 0 Baso # (Auto) 100 APTT Sodium 135 L Potassium 3.6 Chloride 105 Carbon Dioxide 21 L BUN 25 H Creatinine 0.90 Estimated GFR > 60 BUN/Creatinine Ratio 27.8 H Glucose 118 H Calcium 8.6 Troponin I 11.400 H* 05/08/23 10:35 WBC RBC Hgb Hct MCV MCH MCHC RDW Plt Count Neut % (Auto) Lymph % (Auto) [place] % (Auto) Eos % (Auto) Baso % (Auto) Neut # (Auto) Lymph # (Auto) [place] # (Auto) Eos # (Auto) Baso # (Auto) APTT 46 H Sodium Potassium Chloride Carbon Dioxide BUN Creatinine Estimated GFR BUN/Creatinine Ratio Glucose Calcium Troponin I [facility] Medical History Brain injury Chronic low back pain GERD (gastroesophageal reflux disease) Herniated nucleus pulposus, lumbar History of MRSA infection Hyperlipidemia Ileostomy present Keratosis Kidney stones Lumbosacral radiculopathy at L5 Osteoarthritis Pneumonia Sciatica Seasonal allergies Spinal stenosis Surgical History History of bilateral tubal ligation History of hysterectomy History of meniscectomy of left knee History of tracheostomy Hx of appendectomy Hx of tonsillectomy Family History Unknown No pertinent family history Social History household members: spouse Smoking Status: Never smoker alcohol intake: current Assessment & Plan Assessment & Plan narrative: # acute STEMI -patient DOES NOT want LHC or any interventions -GOC discussion with patient and spouse held and they agreed with comfort measures and arranging hospice -tele # hypoxic resp failure due to likely ischemic cardiomyopathy -CTA with pulm edema and pleural effusions -requiring 15L NC currently, can use HFNC if needed -echo shows 20-25% EF and focal WMA's -lasix 40mg IV BID for decongestion of pulm edema to hopefully lower O2 needs # lactic acidosis -up to 6.1, likely due to poor perfusion in setting of STEMI -now comfort care # possible PNA and UTI -CTA chest with bilateral infiltrates and WBC of 17 -UA with pyuria -now comfort care Code status is DNR/DNI. DVT prophylaxis with heparin drip. Proxy is . I have reviewed home meds and used all available resources to reconcile the home meds. Dispo: Home with hospice in 2 days. Comfort care until then. Quality VTE Deep Vein Thrombosis/Pulmonary Embolism Present on Admission: No
--- NOTE | 2023-05-08 18:36 | PC.NURSE ---
1400 (approximately) - Patient stated significantly increased jaw and back pain, work of breathing increased, O2 at 83%. High-flow NC increased from 10L to 15L and administered IV morphine per NOV. O2 increased to 88-91%. Dr. Coreas made aware. 1824 - O2 reading 76% on 15L high-flow NC. Patient stated jaw and back pain and returned. Work of breathing notably increased. RT happened to be at bedside adjusting high-flow NC equipment. RT recommended placing patient on heated high flow. Dr. Coreas notified and agreed. Placed on heated high flow at 50L / 100%. IV morphine administered per NOV. Dr. Coreas notified family.
[2023-05-08] MEDS: MELATONIN 3 MG TABLET 6 MG PO (21:50)
[2023-05-08] MEDS: LORazepam 1 MG TABLET PO (21:51)
[2023-05-08] MEDS: ACETAMINOPHEN 325 MG TABLET 650 MG PO (21:51)
[2023-05-09 03:07] VITALS: RESP 22
[2023-05-09 06:17] VITALS: RESP 24
[2023-05-09] MEDS: DOCUSATE 100 MG CAPSULE PO (06:17)
[2023-05-09] MEDS: LORazepam 1 MG TABLET PO (06:17)
[2023-05-09] MEDS: PSYLLIUM HUSK 1 PACKET PO (06:17)
[2023-05-09] MEDS: MORPHINE 10 MG/0.5 ML ORAL SYRINGE PO (06:17)
[2023-05-09 07:33] VITALS: RESP 18
--- NOTE | 2023-05-09 09:35 | CM.DPC ---
Addendum entered by LEO Nayak 05/09/23 12:31: Provider reported to this author of patient's passing at approximately 1216. SAFE TECHNICIAN called Tracy at [facility] to update her. Tracy reports patient's spouse is more than welcome to utilize their bereavement services if he desires. DARYA Original Note: DCP Continued: SAFE TECHNICIAN reviewed EMR. Per provider, had to switch her to high flow O2 last night. Want to ween her off O2 prior to d/c home. Provider reports Tuesday is an appropriate goal to d/c home to due patient's high O2 levels. SAFE TECHNICIAN spoke with Tracy at [facility] . Tracy reports one opening today, no Tuesday, and 5 opening Tuesday. Tracy reported she would pencil patient in for start of care Tuesday. Tracy reported she was unable to get ahold of spouse yesterday. SAFE TECHNICIAN agreed to speak with spouse about getting in contact with [facility] . Plan: plan continuing to develop. Likely home with [facility] Tuesday, transport via BLS. CM team will set up transportation when a clearer time is available. CM team will continue to follow closely. LEO Nayak
[2023-05-09 10:32] VITALS: RESP 18
[2023-05-09] MEDS: FUROSEMIDE 40 MG/4 ML VIAL IV (10:51)
[2023-05-09] MEDS: SODIUM CHLORIDE 0.9% FLUSH 10 ML IV (10:51)
[2023-05-09] MEDS: MORPHINE 2 MG/ML INJ IV (10:57)
--- NOTE | 2023-05-09 11:18 | DI.RAD.S_ITS ---
PROCEDURE: XR CHEST 1V INDICATIONS: hypoxia TECHNIQUE: One view of the chest was acquired. COMPARISON: [facility], [facility], XR CHEST 1V, 05/07/2023, 9:05. [facility], [facility], CHEST FOR PICC PLACEMENT, 07/22/2017, 15:35. FINDINGS: Surgical changes and devices: None. Lungs and pleura: Generalized interstitial prominence again seen and appears mildly increased from prior. Mild blunting of the costophrenic angles may represent small effusions. No focal consolidative opacities are seen.. No pleural effusions or pneumothorax. Mediastinum: Mediastinal contours appear normal. Heart size is normal. Bones and chest wall: No suspicious bony lesions. Overlying soft tissues appear unremarkable. IMPRESSION: Redemonstration of generalized increased interstitial markings, likely representing pulmonary edema and appears mildly increased compared to prior. No focal opacities are seen. Small bilateral pleural effusions. Dictated by: Emmanuel Galvan M.D. on 05/09/2023 at 11:40 Approved by: Emmanuel Galvan M.D. on 05/09/2023 at 11:42
[2023-05-09] MEDS: LORazepam 2 MG/ML INJ 1 MG IV (11:32)
--- NOTE | 2023-05-09 12:02 | PC.NURSE ---
Approximately 1050am this morning patient called having re occurrance of right shoulder area pain and increased respiratory effort and distress. Patient medicated with IV morphine for pain, that seemed to help with her pain but did not decrease her respiratory distress. Dr. Coreas notified, IV ativan ordered and administered. Patient's Jorge L called to notify him of her changing condition. Will continue to monitor and continue with comfort measures.
--- NOTE | 2023-05-09 12:35 | PC.NURSE ---
Patient stopped breathing at 1216, her arrived just shortly after. Dr. Coreas notified and to bedside. states they have arrangement for cremation services through [employer], coordinator notified.
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
== END 2023-05-09 17:50 | disposition expired ==
LOC: ED 09:10 → AC 12:38 → ICU 15:10
PROVIDERS: Internal Medicine; Admitting Provider Student in an Organized Health Care Education/Training Program; Emergency Provider Emergency Medicine; PCP Student in an Organized Health Care Education/Training Program; Referring Provider Emergency Medicine; Visit Provider Student in an Organized Health Care Education/Training Program
DX: I21.3 ST elevation (STEMI) myocardial infarction of unspecified site (principal); J18.9 Pneumonia, unspecified organism; J96.91 Respiratory failure, unspecified with hypoxia; E87.20 Acidosis, unspecified; N39.0 Urinary tract infection, site not specified; I25.5 Ischemic cardiomyopathy; Z66 Do not resuscitate; Z51.5 Encounter for palliative care
CPT/HCPCS: 36415; 71045; 71275; 80048; 80053; 81003; 81015; 82550; 83605; 83690; 83735; 83880; 84145; 84443; 84484; 85025; 85379; 85610; 85730; 87077; 87086; 87186; 87797; 93005; 93306; 94762; 96365; 96366; 96375; 96376; 99285; J1644; J1940; J2060; J2270; J2765; Q9967